=== PATIENT | male | born 1945 | race Caucasian/White ===

== ENCOUNTER → 2017-08-08 | Outpatient (CLI) | payer MEDICARE, OTHER | LOC: M RAD 09:04 | DX: Z12.2 Encounter for screening for malignant neoplasm of respiratory organs (principal); R91.1 Solitary pulmonary nodule | CPT/HCPCS: G0297 ==

== ENCOUNTER → 2017-11-08 | Outpatient (REF) | payer MEDICARE, OTHER ==
[2017-11-08 17:06] LABS: HEMATOCRIT 36.2 % (42.0-52.0); HEMOGLOBIN 12.3 g/dl (13.5-17.5); MEAN CORPUSCULAR HEMOGLOBIN 31.5 pg (27.0-33.0); MEAN CORPUSCULAR VOLUME 92.6 fl (80.0-96.0); PLATELET COUNT, AUTOMATED 301 10^3/uL (150-450); RED BLOOD COUNT 3.91 10^6/uL (4.30-6.10); RED CELL DISTRIBUTION WIDTH 12.9 % (11.5-14.5); WHITE BLOOD COUNT 6.9 10^3/uL (4.0-10.0)
[2017-11-08 17:17] LABS: APPEARANCE, URINE MANUAL TURBID (CLEAR); COLOR, URINE MANUAL RED (YELLOW); PH,URINE MAN OBSCURED UNITS (5.0 - 7.0)
[2017-11-08 17:18] LABS: BILIRUBIN, URINE MANUAL OBSCURED (NEGATIVE); BLOOD URINE MANUAL POSITIVE (NEGATIVE); GLUCOSE, URINE (UA) MANUAL OBSCURED mg/dL (NEGATIVE); KETONE, URINE MANUAL OBSCURED mg/dL (NEGATIVE); LEUKOCYTE ESTERASE, URINE MAN OBSCURED (NEGATIVE); MICROSCOPIC INDICATED? MAN YES (NO); NITRITE, URINE MANUAL OBSCURED (NEGATIVE); PROTEIN, URINE MANUAL OBSCURED mg/dL (NEGATIVE); RBC, URINE TNTC /hpf (0-3); SPECIFIC GRAVITY,URINE MANUAL 1.022 (1.002-1.035); SQUAMOUS EPITHELIAL CELL URINE NONE SEEN /hpf (SMALL AMT); UROBILINOGEN, URINE MANUAL OBSCURED mg/dl (NORMAL); WBC, URINE NONE SEEN /hpf (0-3)
[2017-11-08 17:19] LABS: BACTERIA, URINE NONE SEEN; HYALINE CAST, URINE NONE SEEN /lpf (0-1); MICROSCOPIC EXAM PERFORMED
[2017-11-08 17:21] LABS: ALBUMIN 3.9 GM/DL (3.2-5.2); ALBUMIN/GLOBULIN RATIO 1.05 (1.00-1.93); ALKALINE PHOSPHATASE 49 U/L (45-117); ALT/SGPT 17 U/L (12-78); ANION GAP 7 MEQ/L (8-16); AST/SGOT 14 U/L (7-37); BILIRUBIN,TOTAL 0.4 MG/DL (0.2-1.0); BLOOD UREA NITROGEN 16 MG/DL (7-18); CALCIUM LEVEL 8.7 MG/DL (8.8-10.2); CARBON DIOXIDE LEVEL 26 MEQ/L (21-32); CHLORIDE LEVEL 104 MEQ/L (98-107); CREATININE FOR GFR 0.91 MG/DL (0.70-1.30); GLOMERULAR FILTRATION RATE > 60.0 (>42); GLUCOSE, FASTING 93 MG/DL (70-100); POTASSIUM SERUM 4.4 MEQ/L (3.5-5.1); SODIUM LEVEL 137 MEQ/L (136-145); TOTAL PROTEIN 7.6 GM/DL (6.4-8.2)
== END ==
LOC: M SFHCCLAY 11:07
DX: R31.0 Gross hematuria (principal)
CPT/HCPCS: 80053

== ENCOUNTER → 2017-11-22 | Outpatient (CLI) | payer MEDICARE, OTHER ==
[~2017-11-22] MED LIST: ISOVUE-370 76% 100ML VIAL (Q9967) As Ordered
== END ==
LOC: M RAD 10:49
DX: R31.0 Gross hematuria (principal); N28.1 Cyst of kidney, acquired; K76.89 Other specified diseases of liver; K57.90 Diverticulosis of intestine, part unspecified, without perforation or abscess without bleeding; N40.0 Benign prostatic hyperplasia without lower urinary tract symptoms
CPT/HCPCS: Q9967

== ENCOUNTER → 2018-01-15 | Outpatient (REF) | payer MEDICARE, OTHER ==
[2018-01-15 11:28] LABS: BASO # 0.1 10^3/uL (0.0-0.2); BASO % 2.2 % (0.0-1.0); EOS # 0.3 10^3/uL (0.0-0.50); HEMATOCRIT 38.6 % (42.0-52.0); HEMOGLOBIN 13.5 g/dl (13.5-17.5); IMMATURE GRANULOCYTE % 0.7 % (0-3.0); LYMPH # 1.3 10^3/uL (1.5-4.5); LYMPH % 29.8 % (24.0-44.0); MEAN CORPUSCULAR HEMOGLOBIN 31.7 pg (27.0-33.0); MEAN CORPUSCULAR VOLUME 90.6 fl (80.0-96.0); MONO # 0.5 10^3/uL (0.0-0.8); MONO % 10.1 % (0.0-5.0); NEUTROPHILS # 2.2 10^3/uL (1.8-7.7); NEUTROPHILS % 50.2 % (36.0-66.0); PLATELET COUNT, AUTOMATED 275 10^3/uL (150-450); RED BLOOD COUNT 4.26 10^6/uL (4.30-6.10); WHITE BLOOD COUNT 4.5 10^3/uL (4.0-10.0)
[2018-01-15 11:44] LABS: IRON (FE) 55 UG/DL (65-175)
== END ==
LOC: M SFHCCLAY 08:34
DX: D64.9 Anemia, unspecified (principal)
CPT/HCPCS: 83540

== ENCOUNTER → 2018-02-06 | Outpatient (CLI) | payer MEDICARE, OTHER | LOC: M RAD 08:41 | DX: Z12.2 Encounter for screening for malignant neoplasm of respiratory organs (principal); Z87.891 Personal history of nicotine dependence | CPT/HCPCS: 71250 ==

== ENCOUNTER → 2018-03-05 | Outpatient (CLI) | payer MEDICARE, OTHER | LOC: M PLARAD 13:10 | DX: R91.1 Solitary pulmonary nodule (principal); R91.8 Other nonspecific abnormal finding of lung field | CPT/HCPCS: 78815 ==

== ENCOUNTER → 2018-03-07 | Outpatient (REF) | payer MEDICARE, OTHER ==
[2018-03-07 14:30] LABS: BASO # 0.1 10^3/uL (0.0-0.2); BASO % 1.7 % (0.0-1.0); EOS # 0.3 10^3/uL (0.0-0.50); EOS % 4.7 % (0.0-3.0); HEMATOCRIT 37.4 % (42.0-52.0); HEMOGLOBIN 12.9 g/dl (13.5-17.5); IMMATURE GRANULOCYTE % 0.9 % (0-3.0); LYMPH # 1.5 10^3/uL (1.5-4.5); MEAN CORPUSCULAR HEMOGLOBIN 30.9 pg (27.0-33.0); MEAN CORPUSCULAR HGB CONC 34.5 g/dl (32.0-36.5); MEAN CORPUSCULAR VOLUME 89.7 fl (80.0-96.0); MONO # 0.6 10^3/uL (0.0-0.8); MONO % 8.8 % (0.0-5.0); NEUTROPHILS # 3.9 10^3/uL (1.8-7.7); NEUTROPHILS % 60.9 % (36.0-66.0); PLATELET COUNT, AUTOMATED 280 10^3/uL (150-450); RED BLOOD COUNT 4.17 10^6/uL (4.30-6.10); RED CELL DISTRIBUTION WIDTH 12.6 % (11.5-14.5); WHITE BLOOD COUNT 6.3 10^3/uL (4.0-10.0)
[2018-03-07 14:47] LABS: ANION GAP 4 MEQ/L (8-16); BLOOD UREA NITROGEN 13 MG/DL (7-18); CALCIUM LEVEL 8.3 MG/DL (8.8-10.2); CARBON DIOXIDE LEVEL 27 MEQ/L (21-32); CHLORIDE LEVEL 106 MEQ/L (98-107); CREATININE FOR GFR 0.79 MG/DL (0.70-1.30); GLOMERULAR FILTRATION RATE > 60.0 (>42); GLUCOSE, FASTING 82 MG/DL (70-100); POTASSIUM SERUM 4.5 MEQ/L (3.5-5.1); SODIUM LEVEL 137 MEQ/L (136-145)
[2018-03-07 14:50] LABS: INR 0.94; PROTHROMBIN TIME 12.7 SECONDS (12.1-14.4)
[2018-03-07 14:51] LABS: PARTIAL THROMBOPLASTIN TIME 30.3 SECONDS (25.4-37.6)
== END ==
LOC: M LAB REF 13:11
DX: R91.1 Solitary pulmonary nodule (principal); Z79.01 Long term (current) use of anticoagulants
CPT/HCPCS: 80048

== ENCOUNTER 2018-03-12 05:50 | Day surgery (SDC) | payer MEDICARE, OTHER ==
[2018-03-12] MEDS: THROMBIN SOLN 20,000 UNITS KIT As Ordered (06:37)
[2018-03-12] MEDS: EPINEPHrine 1MG/10ML SYRINGE 1.5IN As Ordered (06:37)
[2018-03-12] MEDS: LIDOCAINE VISCOUS 2% SOLN 15ML UDC As Ordered (06:38)
[2018-03-12] MEDS ORDERED: LR 1,000 ML IV ×2 (06:45→09:15)
[2018-03-12] MEDS ORDERED: LIDOCAINE 2% INJ 100 MG/5 ML SDV (FOR ANES.) As Ordered (07:19)
[2018-03-12] MEDS ORDERED: ROCURONIUM BROMIDE 50 MG/5 ML VIAL As Ordered (07:19)
[2018-03-12] MEDS ORDERED: PROPOFOL 200 MG/20 ML VIAL As Ordered ×2 (07:19→08:46)
[2018-03-12] MEDS ORDERED: fentaNYL 100 MCG/2 ML INJECTION (J3010) As Ordered (07:20)
[2018-03-12] MEDS ORDERED: dexameTHASONE 4 MG/ML 1ML VIAL (J1100) As Ordered (07:45)
[2018-03-12] MEDS: CETACAINE SPRAY 5GM As Ordered (07:47)
[2018-03-12] MEDS ORDERED: GLYCOPYRROLATE INJ 0.2 MG/ML 2 ML VIAL As Ordered ×2 (07:57→08:36)
[2018-03-12] MEDS ORDERED: NEOSTIGMINE 10 MG/10 ML VIAL (J2710) As Ordered ×2 (07:57→08:10)
[2018-03-12] MEDS ORDERED: ONDANSETRON 4MG/2ML VIAL (J2405) As Ordered (07:58)
[2018-03-12] MEDS ORDERED: ePHEDrine SULFATE 25 MG/5 ML(5MG/ML) SYRINGE As Ordered (08:00)
[2018-03-12] MEDS ORDERED: PHENYLephrine HCL 500 MCG/5 ML (100MCG/ML) SYRINGE (J2370) As Ordered ×2 (08:00→08:36)
[2018-03-12] MEDS ORDERED: PERCOCET 5MG/325MG TAB PO (09:15)
[2018-03-12] MEDS ORDERED: ONDANSETRON 4MG/2ML VIAL (J2405) IV (09:15)
[2018-03-12] MEDS ORDERED: fentaNYL 100 MCG/2 ML INJECTION (J3010) IV (09:15)
== END 2018-03-12 09:57 | disposition home or self-care (01) ==
LOC: M SDC 05:50
DX: R91.1 Solitary pulmonary nodule (principal); F17.218 Nicotine dependence, cigarettes, with other nicotine-induced disorders; I10 Essential (primary) hypertension; E03.9 Hypothyroidism, unspecified; K58.9 Irritable bowel syndrome, unspecified; K21.9 Gastro-esophageal reflux disease without esophagitis; F41.9 Anxiety disorder, unspecified; F32.9 Major depressive disorder, single episode, unspecified; Z79.899 Other long term (current) drug therapy
CPT/HCPCS: 31623

== ENCOUNTER → 2018-03-26 | Outpatient (CLI) | payer MEDICARE, OTHER | LOC: M CARPUL 13:10 | DX: J44.9 Chronic obstructive pulmonary disease, unspecified (principal) | CPT/HCPCS: 94060 ==

== ENCOUNTER → 2018-05-07 | Outpatient (CLI) | payer MEDICARE, OTHER ==
[2018-05-07 11:47] LABS: ABG BASE EXCESS -1.9 (-2.0-2.0); ABG DEVICE ROOM AIR; ABG HCO3 22.1 MEQ/L (22.0-26.0); ABG O2 SATURATION 96.2 % (95.0-99.0); ABG PARTIAL PRESSURE CO2 35.1 mmHg (35.0-45.0); ABG STANDARD HCO3 22.9 MEQ/L (22.0-26.0); ABG TOTAL CO2 23.2 MEQ/L (23.0-31.0); ABG pH (ARTERIAL) 7.417 UNITS (7.350-7.450)
[2018-05-07 12:01] LABS: CARBOXYHEMOGLOBIN 1.7 % (0.0-1.5)
[2018-05-07 12:13] LABS: AMORPHOUS SEDIMENT SMALL (NEGATIVE); APPEARANCE, URINE CLEAR (CLEAR); BACTERIA, URINE AUTO NEGATIVE (NEGATIVE); BILIRUBIN, URINE AUTO NEGATIVE (NEGATIVE); BLOOD, URINE BLOOD NEGATIVE (NEGATIVE); COLOR, URINE YELLOW (YELLOW); GLUCOSE, URINE (UA) AUTO NEGATIVE (NEGATIVE); KETONE, URINE AUTO NEGATIVE (NEGATIVE); LEUKOCYTE ESTERASE, URINE AUTO NEGATIVE (NEGATIVE); MUCUS, URINE SMALL (NEGATIVE); NITRITE, URINE AUTO NEGATIVE (NEGATIVE); PROTEIN, URINE AUTO NEGATIVE (NEGATIVE); RBC, URINE AUTO 2 /HPF (0-3); SPECIFIC GRAVITY URINE AUTO 1.019 (1.002-1.035); SQUAMOUS EPITHELIAL CELL UR AU 0 /HPF (0-6); UROBILINOGEN, URINE AUTO 0.2 mg/dL (0.0-2.0); WBC, URINE AUTO 1 /HPF (0-3)
[2018-05-07 12:14] LABS: HEMATOCRIT 34.8 % (42.0-52.0); MEAN CORPUSCULAR HEMOGLOBIN 31.4 pg (27.0-33.0); MEAN CORPUSCULAR HGB CONC 34.5 g/dl (32.0-36.5); MEAN CORPUSCULAR VOLUME 91.1 fl (80.0-96.0); PLATELET COUNT, AUTOMATED 294 10^3/uL (150-450); RED BLOOD COUNT 3.82 10^6/uL (4.30-6.10); RED CELL DISTRIBUTION WIDTH 13.2 % (11.5-14.5); WHITE BLOOD COUNT 5.9 10^3/uL (4.0-10.0)
[2018-05-07 12:32] LABS: INR 1.15; PARTIAL THROMBOPLASTIN TIME 26.7 SECONDS (25.4-37.6); PROTHROMBIN TIME 14.8 SECONDS (12.1-14.4)
[2018-05-07 12:41] LABS: ANION GAP 6 MEQ/L (8-16); BLOOD UREA NITROGEN 16 MG/DL (7-18); CALCIUM LEVEL 8.6 MG/DL (8.8-10.2); CARBON DIOXIDE LEVEL 28 MEQ/L (21-32); CHLORIDE LEVEL 106 MEQ/L (98-107); CREATININE FOR GFR 0.89 MG/DL (0.70-1.30); GLOMERULAR FILTRATION RATE > 60.0 (>42); GLUCOSE, FASTING 94 MG/DL (70-100); POTASSIUM SERUM 4.4 MEQ/L (3.5-5.1); SODIUM LEVEL 140 MEQ/L (136-145)
== END ==
LOC: M ADMPAT 09:56
DX: R91.1 Solitary pulmonary nodule (principal); R91.8 Other nonspecific abnormal finding of lung field
CPT/HCPCS: 71046

== ENCOUNTER 2018-05-21 07:22 | Inpatient (IN) | payer MEDICARE, OTHER ==
[2018-05-21] MEDS: LR 1,000 ML IV ×2 (06:00→16:15)
[2018-05-21] MEDS: MUPIROCIN 2% OINT 22 GM TUBE TOP (06:00)
[~2018-05-21 07:22] MED LIST changes: -ISOVUE-370 76% 100ML VIAL (Q9967) As Ordered; +LIDOCAINE 1% MDV 20ML VIAL SQ
[2018-05-21] MEDS ORDERED: fentaNYL 100 MCG/2 ML INJECTION (J3010) As Ordered ×2 (09:05→15:55)
[2018-05-21] MEDS ORDERED: MIDAZOLAM INJ 2 MG/2 ML VIAL (J2250) As Ordered ×2 (09:05→12:26)
[2018-05-21] MEDS: fentaNYL 100 MCG/2 ML INJECTION (J3010) IV ×6 (09:19→16:20)
[2018-05-21] MEDS: MIDAZOLAM INJ 2 MG/2 ML VIAL (J2250) IV ×2 (09:19→09:20)
[2018-05-21] MEDS ORDERED: WALLBOXKEY XX (10:30)
[2018-05-21] MEDS ORDERED: NALOXONE INJ 0.4 MG/1 ML VIAL (J2310) IV (10:30)
[2018-05-21] MEDS ORDERED: METOCLOPRAMIDE INJ 10MG/2ML VIAL (J2765) IV (10:30)
[2018-05-21] MEDS ORDERED: diphenhydrAMINE INJ 50MG/ML VIAL (J1200) IV (10:30)
[2018-05-21] MEDS ORDERED: ONDANSETRON 4MG/2ML VIAL (J2405) IV ×3 (10:30→16:15)
[2018-05-21] MEDS ORDERED: EPIDURAL/PCA KEYS XX (10:30)
[2018-05-21] MEDS: CETACAINE SPRAY 5GM As Ordered (10:36)
[2018-05-21] MEDS: MUPIROCIN 2% OINT 22 GM TUBE As Ordered (10:49)
[2018-05-21] MEDS ORDERED: BUPIVACAINE HCL 0.25% 30 ML VIAL As Ordered (12:26)
[2018-05-21] MEDS ORDERED: LIDOCAINE 2% INJ 100 MG/5 ML SDV (FOR ANES.) As Ordered (12:26)
[2018-05-21] MEDS ORDERED: PHENYLephrine HCL 500 MCG/5 ML (100MCG/ML) SYRINGE (J2370) As Ordered ×3 (12:26→14:08)
[2018-05-21] MEDS ORDERED: ONDANSETRON 4MG/2ML VIAL (J2405) As Ordered (12:26)
[2018-05-21] MEDS ORDERED: ePHEDrine SULFATE 25 MG/5 ML(5MG/ML) SYRINGE As Ordered (12:26)
[2018-05-21] MEDS ORDERED: dexameTHASONE 4 MG/ML 1ML VIAL (J1100) As Ordered (12:26)
[2018-05-21] MEDS ORDERED: ROCURONIUM BROMIDE 50 MG/5 ML VIAL As Ordered ×3 (12:26→14:11)
[2018-05-21] MEDS ORDERED: fentaNYL 250 MCG/5 ML INJECTION (J3010) As Ordered (12:26)
[2018-05-21] MEDS ORDERED: PROPOFOL 200 MG/20 ML VIAL As Ordered (12:26)
[2018-05-21] MEDS ORDERED: NEOSTIGMINE 10 MG/10 ML VIAL (J2710) As Ordered (15:01)
[2018-05-21] MEDS ORDERED: GLYCOPYRROLATE INJ 0.2 MG/ML 2 ML VIAL As Ordered ×2 (15:01)
[2018-05-21] MEDS: BUPIVACAINE HCL 0.5% 10 ML VIAL As Ordered (15:05)
[2018-05-21] MEDS: BUPIVACAINE LIPOSOME/PF 1.3% 20ML VIAL (13.3MG/ML)(EXPAREL)(C9290 PER1MG) As Ordered (15:05)
[2018-05-21] MEDS ORDERED: NORCO, ANEXSIA 5/325MG TABLET (HYDROcodone/ACETAMINOPHEN) PO (15:30)
[2018-05-21] MEDS ORDERED: PERCOCET 5MG/325MG TAB PO (15:30)
[2018-05-21] MEDS ORDERED: BISACODYL 10 MG SUPP PR (15:30)
[2018-05-21] MEDS: FENTANYL/BUPIVACAINE/NACL BAG 250 ML EPIDURAL (15:45)
[2018-05-21 16:01] LABS: ABG HCO3 23.1 MEQ/L (22.0-26.0); ABG O2 SATURATION 92.6 % (95.0-99.0); ABG PARTIAL PRESSURE CO2 40.8 mmHg (35.0-45.0); ABG PARTIAL PRESSURE O2 64.9 mmHg (75.0-100.0); ABG STANDARD HCO3 22.7 MEQ/L (22.0-26.0); ABG TOTAL CO2 24.4 MEQ/L (23.0-31.0); ABG pH (ARTERIAL) 7.371 UNITS (7.350-7.450)
[2018-05-21 16:04] LABS: BASO # 0.1 10^3/uL (0.0-0.2); BASO % 0.8 % (0.0-1.0); EOS # 0.1 10^3/uL (0.0-0.50); EOS % 0.5 % (0.0-3.0); HEMATOCRIT 33.1 % (42.0-52.0); HEMOGLOBIN 11.3 g/dl (13.5-17.5); IMMATURE GRANULOCYTE % 0.6 % (0-3.0); LYMPH # 0.4 10^3/uL (1.5-4.5); LYMPH % 3.8 % (24.0-44.0); MEAN CORPUSCULAR HEMOGLOBIN 31.4 pg (27.0-33.0); MEAN CORPUSCULAR HGB CONC 34.1 g/dl (32.0-36.5); MEAN CORPUSCULAR VOLUME 91.9 fl (80.0-96.0); MONO # 0.5 10^3/uL (0.0-0.8); MONO % 5.3 % (0.0-5.0); NEUTROPHILS # 8.8 10^3/uL (1.8-7.7); PLATELET COUNT, AUTOMATED 226 10^3/uL (150-450); RED CELL DISTRIBUTION WIDTH 12.5 % (11.5-14.5); WHITE BLOOD COUNT 9.9 10^3/uL (4.0-10.0)
[2018-05-21] MEDS ORDERED: MORPHINE 10 MG/ML 1ML VIAL (J2270) IV (16:15)
[2018-05-21 16:22] LABS: ANION GAP 8 MEQ/L (8-16); BLOOD UREA NITROGEN 18 MG/DL (7-18); CALCIUM LEVEL 7.7 MG/DL (8.8-10.2); CARBON DIOXIDE LEVEL 26 MEQ/L (21-32); CHLORIDE LEVEL 105 MEQ/L (98-107); CREATININE FOR GFR 0.93 MG/DL (0.70-1.30); GLOMERULAR FILTRATION RATE > 60.0 (>42); GLUCOSE, FASTING 132 MG/DL (70-100); POTASSIUM SERUM 3.9 MEQ/L (3.5-5.1); SODIUM LEVEL 139 MEQ/L (136-145)
[2018-05-21] MEDS: KCL 20MEQ IN D5/NS 1000ML 1,000 ML IV (16:24)
[2018-05-21] MEDS: KETOROLAC 30 MG/ML VIAL (J1885) IV (16:31)
[2018-05-21] MEDS: LISINOPRIL 20 MG TAB PO (18:47)
[2018-05-21] MEDS: ceFAZolin SOD 1 GM in D5W MINI-BAG PLUS 50 ML IV (18:51)
[2018-05-21] MEDS: ATORVASTATIN 20 MG TAB PO (18:52)
[2018-05-21] MEDS: PANTOPRAZOLE 40MG TAB (PROTONIX) PO (18:52)
[2018-05-21] MEDS: LEVALBUTEROL 1.25 MG/0.5 ML CONCENTRATE NEB NEB (19:32)
[2018-05-21] MEDS: busPIRone 10 MG TAB PO (21:00)
[2018-05-21] MEDS: DOCUSATE SODIUM 100 MG CAP PO (21:16)
[2018-05-21] MEDS: ACETAMINOPHEN TAB 650MG DOSE (2X325MG) PO (21:20)
[2018-05-22] MEDS: LEVALBUTEROL 1.25 MG/0.5 ML CONCENTRATE NEB NEB ×5 (00:21→19:59)
[2018-05-22] MEDS: KETOROLAC 30 MG/ML VIAL (J1885) IV ×4 (00:33→18:14)
[2018-05-22] MEDS: ceFAZolin SOD 1 GM in D5W MINI-BAG PLUS 50 ML IV ×3 (04:01→18:14)
[2018-05-22 05:07] LABS: BASO % 0.2 % (0.0-1.0); EOS % 0.2 % (0.0-3.0); HEMOGLOBIN 10.1 g/dl (13.5-17.5); IMMATURE GRANULOCYTE % 0.4 % (0-3.0); LYMPH # 0.7 10^3/uL (1.5-4.5); LYMPH % 7.2 % (24.0-44.0); MEAN CORPUSCULAR HEMOGLOBIN 31.4 pg (27.0-33.0); MEAN CORPUSCULAR HGB CONC 33.7 g/dl (32.0-36.5); MEAN CORPUSCULAR VOLUME 93.2 fl (80.0-96.0); MONO % 9.7 % (0.0-5.0); NEUTROPHILS # 8.2 10^3/uL (1.8-7.7); NEUTROPHILS % 82.3 % (36.0-66.0); PLATELET COUNT, AUTOMATED 236 10^3/uL (150-450); RED BLOOD COUNT 3.22 10^6/uL (4.30-6.10); RED CELL DISTRIBUTION WIDTH 12.5 % (11.5-14.5)
[2018-05-22 06:17] LABS: ABG HCO3 24.6 MEQ/L (22.0-26.0); ABG O2 SATURATION 97.7 % (95.0-99.0); ABG PARTIAL PRESSURE CO2 44.6 mmHg (35.0-45.0); ABG PARTIAL PRESSURE O2 100.4 mmHg (75.0-100.0); ABG STANDARD HCO3 23.6 MEQ/L (22.0-26.0); ABG TOTAL CO2 25.9 MEQ/L (23.0-31.0); ABG pH (ARTERIAL) 7.359 UNITS (7.350-7.450)
[2018-05-22 06:22] LABS: ANION GAP 9 MEQ/L (8-16); BLOOD UREA NITROGEN 15 MG/DL (7-18); CALCIUM LEVEL 6.6 MG/DL (8.8-10.2); CARBON DIOXIDE LEVEL 25 MEQ/L (21-32); CHLORIDE LEVEL 101 MEQ/L (98-107); CREATININE FOR GFR 1.02 MG/DL (0.70-1.30); GLOMERULAR FILTRATION RATE > 60.0 (>42); GLUCOSE, FASTING 114 MG/DL (70-100); SODIUM LEVEL 135 MEQ/L (136-145)
[2018-05-22] MEDS: ATORVASTATIN 20 MG TAB PO (08:55)
[2018-05-22] MEDS: SERTRALINE 100 MG TAB PO (08:55)
[2018-05-22] MEDS: ASPIRIN 81 MG ENTERIC TAB PO (08:55)
[2018-05-22] MEDS: PANTOPRAZOLE 40MG TAB (PROTONIX) PO (08:55)
[2018-05-22] MEDS: LISINOPRIL 20 MG TAB PO (08:55)
[2018-05-22] MEDS: METOPROLOL SUCC (TopROL XL) 50MG **XL** TAB PO (08:56)
[2018-05-22] MEDS: DOCUSATE SODIUM 100 MG CAP PO ×2 (08:56→20:41)
[2018-05-22] MEDS: HEPARIN SOD (PORCINE) 5000 UNITS/ML VIAL SC ×2 (08:56→20:41)
[2018-05-22] MEDS: MOM 30ML SUSPENSION UDC PO (08:57)
[2018-05-22] MEDS ORDERED: NICOTINE 21MG/24HR 1 EA TRANSDERMAL TOP (09:00)
[2018-05-22] MEDS: NICOTINE 14 MG/24 HR TRANSDERMAL TD (09:21)
[2018-05-22] MEDS: busPIRone 10 MG TAB PO (09:27)
[2018-05-22] MEDS: ACETAMINOPHEN TAB 650MG DOSE (2X325MG) PO (11:13)
[2018-05-22] MEDS: FENTANYL/BUPIVACAINE/NACL BAG 250 ML EPIDURAL (15:34)
[2018-05-23] MEDS: LEVALBUTEROL 1.25 MG/0.5 ML CONCENTRATE NEB NEB ×4 (00:55→19:59)
[2018-05-23] MEDS: KETOROLAC 30 MG/ML VIAL (J1885) IV ×4 (01:11→17:27)
[2018-05-23] MEDS: ceFAZolin SOD 1 GM in D5W MINI-BAG PLUS 50 ML IV ×2 (01:16→11:03)
[2018-05-23 05:27] LABS: BASO # 0.1 10^3/uL (0.0-0.2); BASO % 0.7 % (0.0-1.0); EOS # 0.1 10^3/uL (0.0-0.50); EOS % 1.1 % (0.0-3.0); HEMATOCRIT 27.7 % (42.0-52.0); HEMOGLOBIN 9.5 g/dl (13.5-17.5); IMMATURE GRANULOCYTE % 0.5 % (0-3.0); LYMPH # 0.9 10^3/uL (1.5-4.5); LYMPH % 12.5 % (24.0-44.0); MEAN CORPUSCULAR HEMOGLOBIN 32.1 pg (27.0-33.0); MEAN CORPUSCULAR HGB CONC 34.3 g/dl (32.0-36.5); MEAN CORPUSCULAR VOLUME 93.6 fl (80.0-96.0); MONO # 0.7 10^3/uL (0.0-0.8); MONO % 9.2 % (0.0-5.0); NEUTROPHILS # 5.7 10^3/uL (1.8-7.7); PLATELET COUNT, AUTOMATED 191 10^3/uL (150-450); RED BLOOD COUNT 2.96 10^6/uL (4.30-6.10); RED CELL DISTRIBUTION WIDTH 12.4 % (11.5-14.5); WHITE BLOOD COUNT 7.5 10^3/uL (4.0-10.0)
[2018-05-23 05:51] LABS: ANION GAP 4 MEQ/L (8-16); BLOOD UREA NITROGEN 11 MG/DL (7-18); CALCIUM LEVEL 7.6 MG/DL (8.8-10.2); CARBON DIOXIDE LEVEL 30 MEQ/L (21-32); CHLORIDE LEVEL 103 MEQ/L (98-107); CREATININE FOR GFR 0.97 MG/DL (0.70-1.30); GLOMERULAR FILTRATION RATE > 60.0 (>42); GLUCOSE, FASTING 118 MG/DL (70-100); POTASSIUM SERUM 3.9 MEQ/L (3.5-5.1); SODIUM LEVEL 137 MEQ/L (136-145)
[2018-05-23] MEDS: HEPARIN SOD (PORCINE) 5000 UNITS/ML VIAL SC ×2 (08:39→21:00)
[2018-05-23] MEDS: PANTOPRAZOLE 40MG TAB (PROTONIX) PO (08:39)
[2018-05-23] MEDS: busPIRone 10 MG TAB PO (08:39)
[2018-05-23] MEDS: NICOTINE 14 MG/24 HR TRANSDERMAL TD (08:39)
[2018-05-23] MEDS: MOM 30ML SUSPENSION UDC PO (08:39)
[2018-05-23] MEDS: LISINOPRIL 20 MG TAB PO (08:39)
[2018-05-23] MEDS: SERTRALINE 100 MG TAB PO (08:40)
[2018-05-23] MEDS: ATORVASTATIN 20 MG TAB PO (08:40)
[2018-05-23] MEDS: DOCUSATE SODIUM 100 MG CAP PO ×2 (08:40→21:00)
[2018-05-23] MEDS: METOPROLOL SUCC (TopROL XL) 50MG **XL** TAB PO (08:40)
[2018-05-23] MEDS: ASPIRIN 81 MG ENTERIC TAB PO (08:41)
[2018-05-23] MEDS ORDERED: FLUBLOK(EGG FREE)(QUAD)INFLUENZA VACC 0.5ML SYRINGE (90682)18YRS&OLDER IM (09:00)
[2018-05-23] MEDS: FUROSEMIDE 40 MG/4 ML VIAL (J1940) IV (14:41)
[2018-05-23] MEDS: FENTANYL/BUPIVACAINE/NACL BAG 250 ML EPIDURAL (23:55)
[2018-05-24] MEDS: KETOROLAC 30 MG/ML VIAL (J1885) IV ×4 (00:03→17:41)
[2018-05-24] MEDS: LEVALBUTEROL 1.25 MG/0.5 ML CONCENTRATE NEB NEB ×4 (00:49→20:49)
[2018-05-24] MEDS ORDERED: FENTANYL/BUPIVACAINE/NACL BAG 250 ML EPIDURAL (01:00)
[2018-05-24 05:18] LABS: BASO # 0.1 10^3/uL (0.0-0.2); BASO % 0.8 % (0.0-1.0); EOS # 0.1 10^3/uL (0.0-0.50); EOS % 1.6 % (0.0-3.0); HEMOGLOBIN 9.1 g/dl (13.5-17.5); IMMATURE GRANULOCYTE % 0.4 % (0-3.0); LYMPH # 0.9 10^3/uL (1.5-4.5); LYMPH % 12.2 % (24.0-44.0); MEAN CORPUSCULAR HEMOGLOBIN 31.4 pg (27.0-33.0); MEAN CORPUSCULAR HGB CONC 33.7 g/dl (32.0-36.5); MEAN CORPUSCULAR VOLUME 93.1 fl (80.0-96.0); MONO # 0.7 10^3/uL (0.0-0.8); MONO % 9.6 % (0.0-5.0); NEUTROPHILS # 5.7 10^3/uL (1.8-7.7); NEUTROPHILS % 75.4 % (36.0-66.0); PLATELET COUNT, AUTOMATED 209 10^3/uL (150-450); RED CELL DISTRIBUTION WIDTH 12.4 % (11.5-14.5); WHITE BLOOD COUNT 7.6 10^3/uL (4.0-10.0)
[2018-05-24 05:27] LABS: ANION GAP 6 MEQ/L (8-16); BLOOD UREA NITROGEN 9 MG/DL (7-18); CALCIUM LEVEL 7.8 MG/DL (8.8-10.2); CARBON DIOXIDE LEVEL 32 MEQ/L (21-32); CHLORIDE LEVEL 101 MEQ/L (98-107); CREATININE FOR GFR 0.85 MG/DL (0.70-1.30); GLOMERULAR FILTRATION RATE > 60.0 (>42); GLUCOSE, FASTING 118 MG/DL (70-100); SODIUM LEVEL 139 MEQ/L (136-145)
[2018-05-24] MEDS: busPIRone 10 MG TAB PO (08:39)
[2018-05-24] MEDS: MOM 30ML SUSPENSION UDC PO (08:39)
[2018-05-24] MEDS: ASPIRIN 81 MG ENTERIC TAB PO (08:40)
[2018-05-24] MEDS: FUROSEMIDE 40 MG/4 ML VIAL (J1940) IV (08:40)
[2018-05-24] MEDS: ATORVASTATIN 20 MG TAB PO (08:40)
[2018-05-24] MEDS: HEPARIN SOD (PORCINE) 5000 UNITS/ML VIAL SC ×2 (08:40→20:27)
[2018-05-24] MEDS: PANTOPRAZOLE 40MG TAB (PROTONIX) PO (08:41)
[2018-05-24] MEDS: SERTRALINE 100 MG TAB PO (08:41)
[2018-05-24] MEDS: DOCUSATE SODIUM 100 MG CAP PO ×2 (08:41→20:27)
[2018-05-24] MEDS: LISINOPRIL 20 MG TAB PO (08:42)
[2018-05-24] MEDS: METOPROLOL SUCC (TopROL XL) 50MG **XL** TAB PO (08:42)
[2018-05-24] MEDS: NICOTINE 14 MG/24 HR TRANSDERMAL TD (08:43)
[2018-05-25] MEDS: FENTANYL/BUPIVACAINE/NACL BAG 250 ML EPIDURAL (00:10)
[2018-05-25] MEDS: KETOROLAC 30 MG/ML VIAL (J1885) IV ×4 (00:17→18:04)
[2018-05-25] MEDS: LEVALBUTEROL 1.25 MG/0.5 ML CONCENTRATE NEB NEB ×5 (02:00→20:45)
[2018-05-25 04:39] LABS: BASO # 0.1 10^3/uL (0.0-0.2); BASO % 0.8 % (0.0-1.0); EOS # 0.2 10^3/uL (0.0-0.50); EOS % 2.5 % (0.0-3.0); HEMOGLOBIN 9.1 g/dl (13.5-17.5); IMMATURE GRANULOCYTE % 0.6 % (0-3.0); LYMPH % 14.3 % (24.0-44.0); MEAN CORPUSCULAR HEMOGLOBIN 31.6 pg (27.0-33.0); MEAN CORPUSCULAR HGB CONC 33.7 g/dl (32.0-36.5); MEAN CORPUSCULAR VOLUME 93.8 fl (80.0-96.0); MONO # 0.7 10^3/uL (0.0-0.8); MONO % 9.4 % (0.0-5.0); NEUTROPHILS # 5.3 10^3/uL (1.8-7.7); NEUTROPHILS % 72.4 % (36.0-66.0); PLATELET COUNT, AUTOMATED 234 10^3/uL (150-450); RED BLOOD COUNT 2.88 10^6/uL (4.30-6.10); RED CELL DISTRIBUTION WIDTH 12.3 % (11.5-14.5); WHITE BLOOD COUNT 7.3 10^3/uL (4.0-10.0)
[2018-05-25 05:02] LABS: ANION GAP 5 MEQ/L (8-16); BLOOD UREA NITROGEN 10 MG/DL (7-18); CALCIUM LEVEL 7.6 MG/DL (8.8-10.2); CARBON DIOXIDE LEVEL 32 MEQ/L (21-32); CHLORIDE LEVEL 96 MEQ/L (98-107); CREATININE FOR GFR 0.86 MG/DL (0.70-1.30); GLOMERULAR FILTRATION RATE > 60.0 (>42); GLUCOSE, FASTING 110 MG/DL (70-100); POTASSIUM SERUM 3.8 MEQ/L (3.5-5.1); SODIUM LEVEL 133 MEQ/L (136-145)
[2018-05-25] MEDS: LEVOTHYROXINE 100MCG TABLET (0.1MG) PO (06:26)
[2018-05-25] MEDS: LEVOTHYROXINE 75MCG TABLET (0.075MG) PO (06:26)
[2018-05-25] MEDS: MOM 30ML SUSPENSION UDC PO (08:44)
[2018-05-25] MEDS: ATORVASTATIN 20 MG TAB PO (08:45)
[2018-05-25] MEDS: NICOTINE 14 MG/24 HR TRANSDERMAL TD (08:45)
[2018-05-25] MEDS: METOPROLOL SUCC (TopROL XL) 50MG **XL** TAB PO (08:46)
[2018-05-25] MEDS: PANTOPRAZOLE 40MG TAB (PROTONIX) PO (08:46)
[2018-05-25] MEDS: DOCUSATE SODIUM 100 MG CAP PO ×2 (08:46→20:33)
[2018-05-25] MEDS: LISINOPRIL 20 MG TAB PO (08:47)
[2018-05-25] MEDS: SERTRALINE 100 MG TAB PO (08:47)
[2018-05-25] MEDS: HEPARIN SOD (PORCINE) 5000 UNITS/ML VIAL SC ×2 (08:47→20:34)
[2018-05-25] MEDS: busPIRone 10 MG TAB PO (08:47)
[2018-05-25] MEDS: ASPIRIN 81 MG ENTERIC TAB PO (08:47)
[2018-05-25] MEDS: PERCOCET 5MG/325MG TAB PO ×2 (15:46→20:32)
[2018-05-26] MEDS: PERCOCET 5MG/325MG TAB PO ×4 (00:58→23:30)
[2018-05-26] MEDS: KETOROLAC 30 MG/ML VIAL (J1885) IV ×3 (00:59→13:28)
[2018-05-26] MEDS: LEVALBUTEROL 1.25 MG/0.5 ML CONCENTRATE NEB NEB ×5 (02:00→19:55)
[2018-05-26 04:46] LABS: BASO # 0.1 10^3/uL (0.0-0.2); EOS # 0.4 10^3/uL (0.0-0.50); EOS % 5.5 % (0.0-3.0); HEMATOCRIT 27.9 % (42.0-52.0); HEMOGLOBIN 9.3 g/dl (13.5-17.5); IMMATURE GRANULOCYTE % 0.4 % (0-3.0); LYMPH # 1.1 10^3/uL (1.5-4.5); LYMPH % 15.2 % (24.0-44.0); MEAN CORPUSCULAR HEMOGLOBIN 30.9 pg (27.0-33.0); MEAN CORPUSCULAR HGB CONC 33.3 g/dl (32.0-36.5); MEAN CORPUSCULAR VOLUME 92.7 fl (80.0-96.0); MONO # 0.8 10^3/uL (0.0-0.8); MONO % 11.1 % (0.0-5.0); NEUTROPHILS # 4.6 10^3/uL (1.8-7.7); NEUTROPHILS % 66.8 % (36.0-66.0); PLATELET COUNT, AUTOMATED 273 10^3/uL (150-450); RED BLOOD COUNT 3.01 10^6/uL (4.30-6.10); RED CELL DISTRIBUTION WIDTH 12.1 % (11.5-14.5); WHITE BLOOD COUNT 6.9 10^3/uL (4.0-10.0)
[2018-05-26 05:14] LABS: ANION GAP 7 MEQ/L (8-16); BLOOD UREA NITROGEN 9 MG/DL (7-18); CALCIUM LEVEL 8.1 MG/DL (8.8-10.2); CARBON DIOXIDE LEVEL 31 MEQ/L (21-32); CHLORIDE LEVEL 98 MEQ/L (98-107); CREATININE FOR GFR 0.84 MG/DL (0.70-1.30); GLOMERULAR FILTRATION RATE > 60.0 (>42); GLUCOSE, FASTING 114 MG/DL (70-100); POTASSIUM SERUM 3.4 MEQ/L (3.5-5.1); SODIUM LEVEL 136 MEQ/L (136-145)
[2018-05-26] MEDS: LEVOTHYROXINE 75MCG TABLET (0.075MG) PO (06:19)
[2018-05-26] MEDS: LEVOTHYROXINE 100MCG TABLET (0.1MG) PO (06:19)
[2018-05-26] MEDS: MOM 30ML SUSPENSION UDC PO (09:00)
[2018-05-26] MEDS: PANTOPRAZOLE 40MG TAB (PROTONIX) PO (09:29)
[2018-05-26] MEDS: HEPARIN SOD (PORCINE) 5000 UNITS/ML VIAL SC ×2 (09:29→20:41)
[2018-05-26] MEDS: NICOTINE 14 MG/24 HR TRANSDERMAL TD (09:29)
[2018-05-26] MEDS: SERTRALINE 100 MG TAB PO (09:29)
[2018-05-26] MEDS: busPIRone 10 MG TAB PO (09:29)
[2018-05-26] MEDS: ASPIRIN 81 MG ENTERIC TAB PO (09:30)
[2018-05-26] MEDS: ATORVASTATIN 20 MG TAB PO (09:30)
[2018-05-26] MEDS: LISINOPRIL 20 MG TAB PO (09:30)
[2018-05-26] MEDS: METOPROLOL SUCC (TopROL XL) 50MG **XL** TAB PO (09:30)
[2018-05-26] MEDS: DOCUSATE SODIUM 100 MG CAP PO ×2 (09:30→20:40)
[2018-05-26] MEDS: POTASSIUM CHLORIDE 10 MEQ SR TABLET PO (11:13)
[2018-05-26] MEDS: FUROSEMIDE 40 MG/4 ML VIAL (J1940) IV (11:14)
[2018-05-27] MEDS: LEVALBUTEROL 1.25 MG/0.5 ML CONCENTRATE NEB NEB ×2 (01:30→07:24)
[2018-05-27] MEDS: PERCOCET 5MG/325MG TAB PO ×3 (04:32→14:06)
[2018-05-27 04:34] LABS: BASO # 0.1 10^3/uL (0.0-0.2); BASO % 1.3 % (0.0-1.0); EOS # 0.4 10^3/uL (0.0-0.50); EOS % 5.8 % (0.0-3.0); HEMATOCRIT 27.1 % (42.0-52.0); HEMOGLOBIN 9.2 g/dl (13.5-17.5); IMMATURE GRANULOCYTE % 0.9 % (0-3.0); LYMPH # 0.9 10^3/uL (1.5-4.5); LYMPH % 13.4 % (24.0-44.0); MEAN CORPUSCULAR HEMOGLOBIN 31.2 pg (27.0-33.0); MEAN CORPUSCULAR HGB CONC 33.9 g/dl (32.0-36.5); MEAN CORPUSCULAR VOLUME 91.9 fl (80.0-96.0); MONO # 0.8 10^3/uL (0.0-0.8); MONO % 11.5 % (0.0-5.0); NEUTROPHILS # 4.6 10^3/uL (1.8-7.7); NEUTROPHILS % 67.1 % (36.0-66.0); PLATELET COUNT, AUTOMATED 313 10^3/uL (150-450); RED BLOOD COUNT 2.95 10^6/uL (4.30-6.10); RED CELL DISTRIBUTION WIDTH 11.9 % (11.5-14.5); WHITE BLOOD COUNT 6.9 10^3/uL (4.0-10.0)
[2018-05-27 04:55] LABS: ANION GAP 9 MEQ/L (8-16); BLOOD UREA NITROGEN 9 MG/DL (7-18); CALCIUM LEVEL 7.6 MG/DL (8.8-10.2); CARBON DIOXIDE LEVEL 32 MEQ/L (21-32); CHLORIDE LEVEL 103 MEQ/L (98-107); CREATININE FOR GFR 0.83 MG/DL (0.70-1.30); GLOMERULAR FILTRATION RATE > 60.0 (>42); GLUCOSE, FASTING 101 MG/DL (70-100); POTASSIUM SERUM 3.9 MEQ/L (3.5-5.1); SODIUM LEVEL 144 MEQ/L (136-145)
[2018-05-27] MEDS: LEVOTHYROXINE 100MCG TABLET (0.1MG) PO (05:40)
[2018-05-27] MEDS: LEVOTHYROXINE 75MCG TABLET (0.075MG) PO (05:40)
[2018-05-27] MEDS: ATORVASTATIN 20 MG TAB PO (08:18)
[2018-05-27] MEDS: SERTRALINE 100 MG TAB PO (08:18)
[2018-05-27] MEDS: NICOTINE 14 MG/24 HR TRANSDERMAL TD (08:19)
[2018-05-27] MEDS: DOCUSATE SODIUM 100 MG CAP PO (08:19)
[2018-05-27] MEDS: MOM 30ML SUSPENSION UDC PO (08:19)
[2018-05-27] MEDS: METOPROLOL SUCC (TopROL XL) 50MG **XL** TAB PO (08:19)
[2018-05-27] MEDS: busPIRone 10 MG TAB PO (08:19)
[2018-05-27] MEDS: PANTOPRAZOLE 40MG TAB (PROTONIX) PO (08:19)
[2018-05-27] MEDS: ASPIRIN 81 MG ENTERIC TAB PO (08:19)
[2018-05-27] MEDS: HEPARIN SOD (PORCINE) 5000 UNITS/ML VIAL SC (08:20)
[2018-05-27] MEDS: LISINOPRIL 20 MG TAB PO (08:20)
== END 2018-05-27 15:36 | disposition home or self-care (01) | DRG 165 ==
LOC: M OR 07:22 → M ICU 17:20
PROC: 0BBC0ZZ Excision of Right Upper Lung Lobe, Open Approach (ICD-10-PCS; principal; 2018-05-21 09:30)
PROC: 07B70ZX Excision of Thorax Lymphatic, Open Approach, Diagnostic (ICD-10-PCS; 2018-05-21 09:30)
DX: C34.11 Malignant neoplasm of upper lobe, right bronchus or lung (principal); I10 Essential (primary) hypertension; E03.9 Hypothyroidism, unspecified; J44.9 Chronic obstructive pulmonary disease, unspecified; Z87.891 Personal history of nicotine dependence; Z79.82 Long term (current) use of aspirin; Z79.899 Other long term (current) drug therapy

== ENCOUNTER → 2018-06-03 | Outpatient (CLI) | payer MEDICARE, OTHER | LOC: M SMT 08:31 | DX: C34.11 Malignant neoplasm of upper lobe, right bronchus or lung (principal) | CPT/HCPCS: 71046 ==

== ENCOUNTER 2018-07-23 09:53 | Inpatient (IN) | payer MEDICARE, OTHER ==
[~2018-07-23] VITALS: Ht 180.3 cm; Wt 78.5 kg
[~2018-07-23 09:53] MED LIST changes: +ASPI81TA85 PO; +BUSP10TA PO; +CEFU50TA PO; +GEMF600T5 PO; +IBUP200T45 PO; +INCR1INH INH; +LEVO175T2 PO; -LIDOCAINE 1% MDV 20ML VIAL SQ; +LIPI20TA PO; +LISI-538 PO; +METO1TAB7 PO; +NICO21DI6 TOP; +PERCOCET PO; +PROAAER10 INH; +SERT-138 PO
[2018-07-23] MEDS ORDERED: LABETALOL HCL 100 MG/20 ML VIAL IV STA ×2 (10:16→12:22)
--- NOTE | 2018-07-23 10:32 | REP ---
Emergency noncontrast head CT: History: Hypertension. Headache. No comparison brain CT. CT findings: Digital preliminary front window cashier radiograph is unremarkable. Bone window settings demonstrate an intact bony calvarium. No fracture or bony destructive lesion is seen. Vascular calcification is noted in the distal carotid arteries bilaterally. The visualized paranasal sinuses show mucosal changes in the ethmoid and frontal and sphenoid sinuses mild in degree. There is diffuse cerebral atrophy. Lenz-white differentiation pattern is intact above below the tentorium. There is no evidence of infarct, hemorrhage, mass, extra-axial fluid collection, or midline shift. Impression: Mucosal changes in the paranasal sinuses consistent with mild sinusitis. Mild diffuse cerebral atrophy and vascular calcification. No acute intracranial abnormality. Electronically Signed by Valeriano Nguyen MD 07/23/2018 10:23 A
--- NOTE | 2018-07-23 10:45 | REP ---
Clinical: Hypertension. Technique: PA and lateral. Comparison: 06/27/2018. Findings: Stable elevation to the right hemidiaphragm. Lung colon are clear. No acute consolidation, effusion, or pneumothorax. No evidence for pulmonary vascular congestion or interstitial edema. No effusion. Mediastinum and cardiac silhouette are stable. Skeletal structures intact. Impression: Chronic stable changes. No acute cardiopulmonary process appreciated. Electronically Signed by Bernard Gill MD 07/23/2018 10:36 A
[2018-07-23 10:53] LABS: BASO # 0.1 10^3/uL (0.0-0.2); BASO % 2.1 % (0.0-1.0); EOS # 0.4 10^3/uL (0.0-0.50); EOS % 6.1 % (0.0-3.0); HEMATOCRIT 36.4 % (42.0-52.0); HEMOGLOBIN 12.6 g/dl (13.5-17.5); LYMPH # 1.3 10^3/uL (1.5-4.5); LYMPH % 19.8 % (24.0-44.0); MEAN CORPUSCULAR HEMOGLOBIN 29.6 pg (27.0-33.0); MEAN CORPUSCULAR HGB CONC 34.6 g/dl (32.0-36.5); MEAN CORPUSCULAR VOLUME 85.6 fl (80.0-96.0); MONO # 0.6 10^3/uL (0.0-0.8); MONO % 9.4 % (0.0-5.0); NEUTROPHILS # 4.1 10^3/uL (1.8-7.7); NEUTROPHILS % 62.3 % (36.0-66.0); PLATELET COUNT, AUTOMATED 278 10^3/uL (150-450); RED BLOOD COUNT 4.25 10^6/uL (4.30-6.10); WHITE BLOOD COUNT 6.6 10^3/uL (4.0-10.0)
[2018-07-23 11:07] LABS: PARTIAL THROMBOPLASTIN TIME 28.4 SECONDS (25.4-37.6); PROTHROMBIN TIME 13.3 SECONDS (12.1-14.4)
[2018-07-23 11:34] LABS: BLOOD UREA NITROGEN 15 MG/DL (7-18); CALCIUM LEVEL 8.3 MG/DL (8.8-10.2); CARBON DIOXIDE LEVEL 31 MEQ/L (21-32); CHLORIDE LEVEL 102 MEQ/L (98-107); CPK CREATINE PHOSPHOKINASE 84 U/L (39-308); CREATININE FOR GFR 0.76 MG/DL (0.70-1.30); GLOMERULAR FILTRATION RATE > 60.0 (>42); GLUCOSE, FASTING 92 MG/DL (70-100); MB/CK RELATIVE INDEX 2.14 (< OR =4); SODIUM LEVEL 139 MEQ/L (136-145); THYROID STIMULATING HORMONE 0.702 uIU/ML (0.358-3.740); TROPONIN I < 0.02 NG/ML (< 0.10)
[2018-07-23] MEDS ORDERED: ATOR40TA75 PO (12:40)
[2018-07-23] MEDS ORDERED: OMEP20CA3 PO (12:40)
[2018-07-23] MEDS ORDERED: ALEV220T26 PO (12:40)
[2018-07-23] MEDS ORDERED: BENA25CA4 PO (12:40)
[2018-07-23] MEDS ORDERED: METOPROLOL SUCC *XL* 25MG TAB (TopROL *XL*) PO ONE (13:15)
[2018-07-23] MEDS ORDERED: ALBUTEROL 90 MCG/ACT 8GM HFA INHALER INH PRN (13:15)
[2018-07-23] MEDS ORDERED: OMEPRAZOLE 20 MG CAP PO PRN (13:15)
[2018-07-23] MEDS ORDERED: diphenhydrAMINE 25 MG CAP PO PRN (13:15)
[2018-07-23] MEDS ORDERED: IPRATROPIUM 0.5MG/ALBUTEROL 2.5MG INH SOL UD 3ML (DUONEB)(J7620) NEB PRN (13:30)
--- NOTE | 2018-07-23 14:03 | HPE ---
DATE OF ADMISSION: 07/23/2018 72-year-old male with a past medical history of right upper lobe lung CA status-post resection in April 2018. History of non-oxygen dependant COPD, hypertension, hyperlipidemia, hypothyroidism who presents to the emergency room due to elevated blood pressure readings with home blood pressure machine. He also has been having this frontal lobe headache for the past week. In the ER he was noted to have blood pressure as high as 251/120 initially and was given 10 mL of Labetalol which did drop it a bit down to 196/110 and then was given another 20 Labetalol IV and now his blood pressure is 168/97. Patient still has a mild frontal lobe headache but this has improved and he does not have any tinnitus or vertigo or visual disturbances. No chest pain or shortness of breath. He has been complaint with his medications and in fact he took his blood pressure medication this morning. He has not changes his diet. He has been compliant with a low sodium diet. He will be admitted for further management. 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 ALLERGIES: No known drug allergies. FAMILY HISTORY: Noncontributory. SOCIAL HISTORY: Patient at this time denies tobacco, alcohol or illicit drugs. MEDICATIONS: Medications he takes at home are as follows: Albuterol 2 puffs inhaled every 4 hours as needed, aspirin 81 mg orally daily, atorvastatin 40 mg orally daily, buspirone 10 mg orally daily, Benadryl 25 mg orally every 4 hours as needed, ibuprofen 400 mg orally every 4 hours as needed, Incruse ellipta 1 puff inhaled daily at 62.5 mcg, Synthroid 175 mg orally daily, lisinopril 20 mg orally daily, metoprolol succinate 50 mg orally daily, Aleve 440 mg orally daily as needed as needed, omeprazole 20 mg orally daily as needed, Sertraline 100 mg orally daily. REVIEW OF SYSTEMS: Negative for all 10 major system except for what was mentioned in the HPI. VITALS: Blood pressure 168/97, heart rate 80 and regular, respiratory rate 17, temperature 98.4, Oxygen saturation 95% on room air. Head is atraumatic normocephalic. NECK: Supple and no JVD. LUNGS: Clear to auscultation. S1, S2 audible. No murmurs appreciated. ABDOMEN: Soft and positive bowel sounds. No pedal edema. SKIN: Intact. NEUROLOGIC EXAMINATION: Patient awake, alert and oriented times three. LABS: WBC 6.6, hemoglobin 12.6, hematocrit 32.4, platelets 276,000, sodium 139, potassium 4.0, chloride 102, CO2 31, anion gap 6, BUN 15, creatinine 0.76, troponin is less than 0.02, TSH 0.702. IMPRESSION: 1. Hypertensive urgency. PLAN: Patient is to be admitted in the observation status in the progressive care unit. I will give him an extra 25 mg of metoprolol succinate for him to have a total of 75 today and we will continue that daily. We will also continue the rest of his preadmission medications and we will give IV hydralazine 10 mg IV every 6 hours as needed for systolic blood pressure greater than 160 until the metoprolol succinate kicks in and we will continue monitoring his care in the PCU.
[2018-07-23 14:53] VITALS: BP 150/90
[2018-07-23 16:00] VITALS: BP 140/58
[2018-07-23] MEDS: hydrALAZINE INJ 20 MG/ML VIAL IV PRN ×2 (16:39→23:51)
[2018-07-23 16:43] VITALS: BP 170/100
[2018-07-23 17:57] VITALS: BP 160/90
[2018-07-23] MEDS: amLODIPine 10 MG TAB PO SCH (18:19)
[2018-07-23 20:04] VITALS: BP 151/97
[2018-07-23] MEDS: ATORVASTATIN 20 MG TAB PO SCH (20:20)
--- NOTE | 2018-07-23 21:20 | ECGEPIP ---
Stationary ECG Study [facility] - ED Test Date: 2018-07-23 Pat Name: MADISON MYERS Department: Room: - Gender: M Delivery Assistant: : [id number] Requested By: CARMEN Chance Order Number: [id number] Reading MD: Juan Daniel Saucedo Measurements Intervals [place] Rate: 85 P: 51 [place]: 190 QRS: -38 QRSD: 92 T: 18 QT: 388 QTc: 464 Interpretive Statements SINUS RHYTHM LEFT AXIS DEVIATION INCOMPLETE RIGHT BUNDLE BRANCH BLOCK NSTTW ABNORMALITIES NO PRIORS FOR COMPARISON Electronically Signed On 07-23-2018 21:19:52 EST by Juan Daniel Saucedo
[2018-07-24] VITALS (9 sets, daily range): BP systolic 138–175; BP diastolic 76–115
[2018-07-24] MEDS ORDERED: ACETAMINOPHEN TAB 650MG DOSE (2X325MG) PO ONE (00:45)
[2018-07-24] MEDS ORDERED: METOCLOPRAMIDE INJ 10MG/2ML VIAL (J2765) IV ONE (02:45)
[2018-07-24] MEDS ORDERED: KETOROLAC 30 MG/ML VIAL (J1885) IV ONE (02:45)
[2018-07-24 05:26] LABS: BLOOD UREA NITROGEN 12 MG/DL (7-18); CALCIUM LEVEL 8.2 MG/DL (8.8-10.2); CARBON DIOXIDE LEVEL 29 MEQ/L (21-32); CHLORIDE LEVEL 100 MEQ/L (98-107); CREATININE FOR GFR 0.77 MG/DL (0.70-1.30); GLOMERULAR FILTRATION RATE > 60.0 (>42); GLUCOSE, FASTING 112 MG/DL (70-100); POTASSIUM SERUM 3.8 MEQ/L (3.5-5.1); SODIUM LEVEL 135 MEQ/L (136-145)
[2018-07-24] MEDS: LEVOTHYROXINE 100MCG TABLET (0.1MG) PO SCH (05:34)
[2018-07-24] MEDS: LEVOTHYROXINE 75MCG TABLET (0.075MG) PO SCH (05:34)
[2018-07-24 07:25] LABS: BASO # 0.1 10^3/uL (0.0-0.2); BASO % 1.3 % (0.0-1.0); EOS # 0.3 10^3/uL (0.0-0.50); EOS % 3.7 % (0.0-3.0); HEMATOCRIT 36.2 % (42.0-52.0); HEMOGLOBIN 12.2 g/dl (13.5-17.5); LYMPH # 1.3 10^3/uL (1.5-4.5); LYMPH % 14.4 % (24.0-44.0); MEAN CORPUSCULAR HEMOGLOBIN 29.5 pg (27.0-33.0); MEAN CORPUSCULAR HGB CONC 33.7 g/dl (32.0-36.5); MEAN CORPUSCULAR VOLUME 87.4 fl (80.0-96.0); MONO # 0.6 10^3/uL (0.0-0.8); MONO % 7.2 % (0.0-5.0); NEUTROPHILS # 6.3 10^3/uL (1.8-7.7); NEUTROPHILS % 72.8 % (36.0-66.0); PLATELET COUNT, AUTOMATED 301 10^3/uL (150-450); RED BLOOD COUNT 4.14 10^6/uL (4.30-6.10); WHITE BLOOD COUNT 8.7 10^3/uL (4.0-10.0)
[2018-07-24] MEDS: hydrALAZINE INJ 20 MG/ML VIAL IV PRN ×2 (07:55→16:56)
[2018-07-24] MEDS ORDERED: LISINOPRIL 20 MG TAB PO SCH (09:00)
[2018-07-24] MEDS ORDERED: METOPROLOL SUCC *XL* 25MG TAB (TopROL *XL*) PO SCH (09:00)
[2018-07-24] MEDS: ASPIRIN 81 MG ENTERIC TAB PO SCH (10:02)
[2018-07-24] MEDS: busPIRone 10 MG TAB PO SCH (10:02)
[2018-07-24] MEDS: SERTRALINE 100 MG TAB PO SCH (10:03)
[2018-07-24] MEDS: amLODIPine 10 MG TAB PO SCH (10:06)
[2018-07-24] MEDS ORDERED: SLF 3 ML SYR IV PRN (12:15)
[2018-07-24] MEDS ORDERED: LISINOPRIL 20 MG TAB PO ONE (13:00)
[2018-07-24] MEDS: METOPROLOL TART 50 MG TAB PO SCH ×2 (13:19→20:42)
[2018-07-24] MEDS: SLF 3 ML SYR IV SCH ×2 (13:19→20:42)
[2018-07-24] MEDS: PANTOPRAZOLE 40MG TAB (PROTONIX) PO SCH (16:57)
--- NOTE | 2018-07-24 19:06 | IPN ---
DATE: 07/24/2018 SUBJECTIVE: The patient is seen and examined in the room today. The patient complained about some abdominal discomfort. The patient stated that he has a history of reflux. The patient also complained about headaches with photosensitivity. The patient feels that it may be related to his uncontrolled blood pressure. According to the patient, the patient has been religiously taking his blood pressure at home, was also taking a pill. The patient is also noted to have mild blister lesion at the head of the penis. OBJECTIVE: VITAL SIGNS: Temperature is 97.8, pulse is 98, respirations 18, blood pressure 160/100, pulse oximetry 94% on room air. GENERAL: Mild distress secondary to persistent headache. Alert, awake, oriented. HEENT: Normocephalic, atraumatic. Extraocular muscles are grossly intact. CARDIOVASCULAR: Positive S1, S2. Regular rate. LUNGS: Clear to auscultation bilaterally. ABDOMEN: Nontender, nondistended. EXTREMITIES: No edema. LABORATORY DATA: WBC 8.7, hemoglobin 12.3, hematocrit 36.2, platelet count is 301. Sodium is 135, potassium 3.8, chloride 100, carbon dioxide 28, BUN 12, creatinine 0.7, GFR greater than 60, fasting glucose 112, calcium 8.2. ASSESSMENT AND PLAN: 1. Hypertensive urgency. At home, the patient is taking very low dose of metoprolol. We increased metoprolol frequency and dosage. Patient is on maximum dose of Norvasc. The patient is on Lisinopril. Also, he has as needed IV hydralazine. Continue to monitor the patient's blood pressure and adjust medications accordingly. 2. Right upper lobe lung cancer. Biopsy was performed and showed poorly differentiated adenocarcinoma. The patient had a wedge resection followed by right upper lobectomy. Surgery was performed on 05/21/2018. 3. Vesicular penile lesion. We will follow with herpes cultures. 4. Non oxygen dependent chronic obstructive pulmonary disease (COPD). No exacerbation at this moment. 5. Gastroesophageal reflux disease (GERD). On Protonix. 6. Hypothyroidism. On Synthroid. 7. History of claustrophobia. 8. Deep vein thrombosis (DVT) prophylaxis. On thromboembolic compression stockings (TEDS) and compression. MTDD
[2018-07-24] MEDS: ATORVASTATIN 20 MG TAB PO SCH (20:42)
[2018-07-25] MEDS: LEVOTHYROXINE 75MCG TABLET (0.075MG) PO SCH (04:49)
[2018-07-25] MEDS: METOPROLOL TART 50 MG TAB PO SCH ×3 (04:49→21:32)
[2018-07-25] MEDS: LEVOTHYROXINE 100MCG TABLET (0.1MG) PO SCH (04:49)
[2018-07-25] MEDS: SLF 3 ML SYR IV SCH ×3 (04:50→21:32)
[2018-07-25 05:07] LABS: HEMATOCRIT 38.4 % (42.0-52.0); HEMOGLOBIN 12.9 g/dl (13.5-17.5); MEAN CORPUSCULAR HEMOGLOBIN 29.3 pg (27.0-33.0); MEAN CORPUSCULAR HGB CONC 33.6 g/dl (32.0-36.5); MEAN CORPUSCULAR VOLUME 87.1 fl (80.0-96.0); PLATELET COUNT, AUTOMATED 323 10^3/uL (150-450); RED BLOOD COUNT 4.41 10^6/uL (4.30-6.10); WHITE BLOOD COUNT 8.4 10^3/uL (4.0-10.0)
[2018-07-25 05:27] LABS: BLOOD UREA NITROGEN 13 MG/DL (7-18); CALCIUM LEVEL 8.3 MG/DL (8.8-10.2); CARBON DIOXIDE LEVEL 27 MEQ/L (21-32); CHLORIDE LEVEL 102 MEQ/L (98-107); CREATININE FOR GFR 0.87 MG/DL (0.70-1.30); GLOMERULAR FILTRATION RATE > 60.0 (>42); GLUCOSE, FASTING 102 MG/DL (70-100); POTASSIUM SERUM 3.8 MEQ/L (3.5-5.1); SODIUM LEVEL 137 MEQ/L (136-145)
[2018-07-25 08:00] VITALS: BP 120/79
[2018-07-25] MEDS: SERTRALINE 100 MG TAB PO SCH (08:06)
[2018-07-25] MEDS: busPIRone 10 MG TAB PO SCH (08:06)
[2018-07-25] MEDS: ASPIRIN 81 MG ENTERIC TAB PO SCH (08:06)
[2018-07-25] MEDS: PANTOPRAZOLE 40MG TAB (PROTONIX) PO SCH (08:06)
[2018-07-25] MEDS: LISINOPRIL 40 MG TAB PO SCH (08:09)
[2018-07-25] MEDS: amLODIPine 10 MG TAB PO SCH (08:10)
[2018-07-25 12:00] VITALS: BP 125/79
[2018-07-25 13:30] VITALS: BP 133/73
[2018-07-25] MEDS: ACETAMINOPHEN TAB 650MG DOSE (2X325MG) PO PRN (13:56)
[2018-07-25 16:00] VITALS: BP 121/78
--- NOTE | 2018-07-25 16:48 | IPNPDOC ---
Text Note Date of Service The patient was seen on 07/25/18. NOTE SUBJECTIVE: The patient is seen and examined in the room today. The patient states his headache is improving but it is not completely resolved. Patient denies fever or chill. OBJECTIVE: VITAL SIGNS: Listed below. GENERAL: Mild distress secondary to persistent headache. Alert, awake, oriented. HEENT: Normocephalic, atraumatic. Extraocular muscles are grossly intact. CARDIOVASCULAR: Positive S1, S2. Regular rate. LUNGS: Clear to auscultation bilaterally. ABDOMEN: Nontender, nondistended. EXTREMITIES: No edema. LABORATORY DATA: Listed below. ASSESSMENT AND PLAN: #. Hypertensive urgency. - Metoprolol frequency and dosage are adjusted. On maximum dosage of norvasc and lisinopril. PRN IV hydralazine discontinued. # Frontal headache - CT Head was negative. Headache is improving with better blood pressure control. #. Right upper lobe lung cancer. - Biopsy was performed and showed poorly differentiated adenocarcinoma. The patient had a wedge resection followed by right upper lobectomy. Surgery was performed on 05/21/2018. #. Vesicular penile lesion. - We will follow with herpes cultures. #. Non oxygen dependent chronic obstructive pulmonary disease (COPD). No exacerbation at this moment. #. Gastroesophageal reflux disease (GERD). On Protonix. #. Hypothyroidism. On Synthroid. #. History of claustrophobia. #. Deep vein thrombosis (DVT) prophylaxis. On thromboembolic compression stockings (TEDS) and compression. VS,Fishbone, I+O VS, Fishbone, I+O Laboratory Tests 07/25/18 04:48 Red Blood Count 4.41, Mean Corpuscular Volume 87.1, Mean Corpuscular Hemoglobin 29.3, Mean Corpuscular Hemoglobin Concent 33.6, Red Cell Distribution Width 12.4, Calcium Level 8.3 L Vital Signs Date Time Temp Pulse Resp B/P (MAP) Pulse Ox O2 Delivery O2 Flow Rate FiO2 07/25/18 13:56 88 133/73 07/25/18 13:30 98.3 18 94 07/24/18 08:00 Room Air I&O- Last 24 Hours up to 6 AM 07/25/18 06:00 Intake Total 2480 ml Output Total 1725 ml Balance 755 ml ARELY DRAKE DO Jul 25, 2018 16:48
[2018-07-25 20:00] VITALS: BP 121/78
[2018-07-25] MEDS: ATORVASTATIN 20 MG TAB PO SCH (21:32)
[2018-07-26 00:07] LABS: HSV IgM TYPES 1&2 1.5 Ratio (0.00-0.90)
[2018-07-26 00:08] VITALS: BP 138/82
[2018-07-26 04:05] VITALS: BP 142/86
[2018-07-26 04:25] LABS: HEMATOCRIT 35.9 % (42.0-52.0); HEMOGLOBIN 12.1 g/dl (13.5-17.5); MEAN CORPUSCULAR HEMOGLOBIN 29.8 pg (27.0-33.0); MEAN CORPUSCULAR HGB CONC 33.7 g/dl (32.0-36.5); MEAN CORPUSCULAR VOLUME 88.4 fl (80.0-96.0); PLATELET COUNT, AUTOMATED 275 10^3/uL (150-450); RED BLOOD COUNT 4.06 10^6/uL (4.30-6.10)
[2018-07-26 04:46] LABS: BLOOD UREA NITROGEN 18 MG/DL (7-18); CALCIUM LEVEL 7.6 MG/DL (8.8-10.2); CARBON DIOXIDE LEVEL 28 MEQ/L (21-32); CHLORIDE LEVEL 104 MEQ/L (98-107); CREATININE FOR GFR 0.89 MG/DL (0.70-1.30); GLOMERULAR FILTRATION RATE > 60.0 (>42); GLUCOSE, FASTING 123 MG/DL (70-100); POTASSIUM SERUM 3.5 MEQ/L (3.5-5.1); SODIUM LEVEL 138 MEQ/L (136-145)
[2018-07-26] MEDS: SLF 3 ML SYR IV SCH (06:00)
[2018-07-26] MEDS: LEVOTHYROXINE 100MCG TABLET (0.1MG) PO SCH (06:38)
[2018-07-26] MEDS: LEVOTHYROXINE 75MCG TABLET (0.075MG) PO SCH (06:38)
[2018-07-26] MEDS: METOPROLOL TART 50 MG TAB PO SCH (06:38)
[2018-07-26] MEDS: ACETAMINOPHEN TAB 650MG DOSE (2X325MG) PO PRN (06:41)
[2018-07-26 08:00] VITALS: BP 144/72
[2018-07-26] MEDS ORDERED: PANT40TA3 PO (08:35)
[2018-07-26] MEDS ORDERED: METO25TA4 PO ×2 (08:35→11:39)
[2018-07-26] MEDS ORDERED: LISI40TA PO ×2 (08:35→11:39)
[2018-07-26] MEDS ORDERED: AMLO10TA5 PO ×2 (08:35→11:39)
[2018-07-26] MEDS ORDERED: ACET500T15 PO ×2 (08:35→11:39)
[2018-07-26 09:07] VITALS: BP 144/72
[2018-07-26] MEDS: amLODIPine 10 MG TAB PO SCH (09:07)
[2018-07-26] MEDS: ASPIRIN 81 MG ENTERIC TAB PO SCH (09:07)
[2018-07-26] MEDS: busPIRone 10 MG TAB PO SCH (09:07)
[2018-07-26] MEDS: PANTOPRAZOLE 40MG TAB (PROTONIX) PO SCH (09:08)
[2018-07-26] MEDS: LISINOPRIL 40 MG TAB PO SCH (09:08)
[2018-07-26] MEDS: SERTRALINE 100 MG TAB PO SCH (09:08)
[2018-07-26] MEDS ORDERED: PROT1TAB2 PO (11:39)
[2018-07-29] MEDS ORDERED: ACYC400T PO ×2 (18:10→18:15)
--- NOTE | 2018-07-29 18:37 | DSES ---
DATE OF ADMISSION: 07/23/2018 DATE OF DISCHARGE: 07/26/2018 CONSULTANTS: None. PRIMARY CARE PROVIDER: Dr. Yvon Martinez DISCHARGE DIAGNOSES: 1. Hypertensive urgency. 2. Frontal headache secondary to sinusitis. 3. Right upper lobe adenocarcinoma lung cancer status post lobectomy. 4. Herpes simplex virus (HSV) infection. 5. Chronic obstructive pulmonary disease (COPD). 6. Gastroesophageal reflux disease. 7. Hypothyroidism. 8. History of claustrophobia. HOSPITALIZATION COURSE: Patient is a 73-year-old gentleman who presented to [facility] on 07/23/2018 with a complaint of significant elevated blood pressure while he was taking home blood pressure measurements. Patient also noted to have right frontal headache. In the emergency room, patient was found to have a blood pressure as high as 250/120. Patient is admitted under hospitalist service for hypertensive urgency. Patient's blood pressure medications were actively adjusted. Later during admission, patient was found to have vesicular penile lesion. Cultures were obtained. Later, with frequent blood pressure medication adjustments, patient's hypertensive urgency resolved. Patient's frontal headache also showed improvement. On 07/26/2018, patient is determined to be stable for discharge with recommendation to followup with primary care provider in 1 week. VITAL SIGNS: On the day of discharge: Temperature 98.7, pulse 77, respiratory rate 18, blood pressure 144/72, pulse oximetry 93% in room air. LABORATORY DATA: WBC 7, hemoglobin 12.1, hematocrit 35.9, platelet count 275, sodium 138, potassium 3.5, chloride 104, carbon dioxide 28, BUN 18, creatinine 0.89, GFR greater than 60, fasting glucose 123, calcium 7.6, magnesium 2, TSH 0.702, troponin I is less than 0.02. MICROBIOLOGY: HSV polymerase chain reaction (PCR) showed positive HSV-2. IMAGING STUDIES: CT of the head without contrast on 07/23/2018 showed mucosal changes in the paranasal sinus consistent with mild sinusitis. Diffuse cerebral atrophy and vascular calcification. No acute intracranial abnormalities. Chest x-ray on 07/23/2018 demonstrated chronic stable changes. No acute cardiopulmonary process appreciated. DISCHARGE MEDICATIONS: - Tylenol 500 mg by mouth by mouth every 6 hours as needed - acyclovir 400 mg by mouth three times a day for 7 days - amlodipine 10 mg by mouth daily - lisinopril 40 mg by mouth daily - metoprolol tartrate 75 mg by mouth twice a day - Protonix 40 mg by mouth daily - ProAir two puff inhalation every 4 hours as needed - aspirin 81 mg by mouth daily - atorvastatin 40 mg by mouth every evening - buspirone 10 mg by mouth daily - Benadryl 25 mg by mouth every 4 hours as needed for allergic reaction - ibuprofen 400 mg by mouth every 4 hours as needed for pain - Incruse Ellipta one puff inhalation daily - Synthroid 175 mcg by mouth daily - sertraline 100 mg by mouth daily DISCHARGE INSTRUCTIONS: Discontinue lines. Discharge home. Activity as tolerated. Low salt diet as tolerated. Due to the inability to access the primary pharmacy in [facility], a few days' supply was sent to local pharmacy and patient will spanish moss picker the rest of the prescription from the [facility] when the pharmacy is available. Patient is instructed to followup with primary care provider in 1-2 weeks. DISCHARGE CONDITION: Fair. DISCHARGE TIME: Greater than 30 minutes.
== END 2018-07-26 11:57 | disposition home or self-care (01) | DRG 305 ==
LOC: M ED 09:53 → M ED INP 13:10 → M PCU 14:45 → OBSVTOIN 15:50
PROVIDERS: ADMIT Internal Medicine; ATTEND Internal Medicine
DX: I16.0 Hypertensive urgency (principal); J44.9 Chronic obstructive pulmonary disease, unspecified; I10 Essential (primary) hypertension; Z85.118 Personal history of other malignant neoplasm of bronchus and lung; E78.5 Hyperlipidemia, unspecified; E03.9 Hypothyroidism, unspecified; Z79.899 Other long term (current) drug therapy; Z79.82 Long term (current) use of aspirin; K21.9 Gastro-esophageal reflux disease without esophagitis; B00.9 Herpesviral infection, unspecified; F40.240 Claustrophobia

== ENCOUNTER → 2018-09-17 | Outpatient (REF) | payer MEDICARE, OTHER ==
[~2018-09-17] MED LIST changes: +ACET500T15 PO; +ACYC400T PO; +ALEV220T26 PO; +AMLO10TA5 PO; +ATOR40TA75 PO; +BENA25CA4 PO; +LISI40TA PO; +METO25TA4 PO; +OMEP20CA3 PO; +PANT40TA3 PO; +PROT1TAB2 PO
[2018-09-17 13:33] LABS: ALBUMIN 3.9 GM/DL (3.2-5.2); ALT/SGPT 30 U/L (12-78); BILIRUBIN,TOTAL 0.5 MG/DL (0.2-1.0); BLOOD UREA NITROGEN 17 MG/DL (7-18); CALCIUM LEVEL 8.5 MG/DL (8.8-10.2); CARBON DIOXIDE LEVEL 30 MEQ/L (21-32); CHLORIDE LEVEL 103 MEQ/L (98-107); CREATININE FOR GFR 0.93 MG/DL (0.70-1.30); GLOMERULAR FILTRATION RATE > 60.0 (>42); GLUCOSE, FASTING 85 MG/DL (70-100); POTASSIUM SERUM 4.5 MEQ/L (3.5-5.1); SODIUM LEVEL 138 MEQ/L (136-145); TOTAL PROTEIN 7.3 GM/DL (6.4-8.2)
== END ==
LOC: M SFHCCLAY 08:11
PROVIDERS: ATTEND Family Medicine
DX: R10.13 Epigastric pain (principal)
CPT/HCPCS: 80053; G0463

== ENCOUNTER → 2018-09-19 | Outpatient (CLI) | payer MEDICARE, OTHER ==
[~2018-09-19] MED LIST changes: +GASTROGRAFIN SOLUTION 30ML (Q9963) As Ordered ONE; +ISOVUE-370 76% 125ML VIAL (Q9967 PER ML) As Ordered ONE
--- NOTE | 2018-09-19 20:47 | REP ---
Clinical: Epigastric pain. Technique: Axial contrast enhanced images from the lung bases to the pubic symphysis with delayed images of the abdomen as well as coronal and sagittal re-formations using oral (per protocol) and 100 ml Isovue 370 intravenous contrast material. Comparison: 11/22/2017. Findings: Lung bases demonstrate chronic fibro atelectatic changes. Elevation of the right hemidiaphragm noted. Hepatic hypodensities compatible with cysts remain stable. No focal hepatic lesion otherwise noted. Spleen, pancreas, gallbladder, bilateral adrenal glands and right kidney are normal. Left kidney includes 2.5 cm hypodensity compatible with cyst and relatively stable. The enteric system is without obstruction or acute inflammatory process. Normal terminal ileum and appendix identified in the right lower quadrant. Scattered sigmoid diverticula noted without acute diverticulitis. Pelvis demonstrates stable appearance of the bladder along with moderately enlarged prostate gland. No ascites. No free air. No adenopathy. Atherosclerotic changes of the aorta and vasculature without aneurysm or dissection. Musculoskeletal structures demonstrate degenerative changes without focal osseous abnormality. Impression: 1. Elevation to the right hemidiaphragm of uncertain etiology. 2. Hepatic and left renal hypodensities remain stable and mandible with cysts. 3. Few colonic diverticula without acute diverticulitis. 4. No acute abdominopelvic pathology appreciated. Electronically Signed by Bernard Gill MD 09/19/2018 08:39 P
== END ==
LOC: M RAD 15:11
PROVIDERS: ATTEND Family Medicine
DX: R10.13 Epigastric pain (principal); K76.89 Other specified diseases of liver; N28.1 Cyst of kidney, acquired
CPT/HCPCS: 74177; Q9963; Q9967

== ENCOUNTER → 2018-10-30 | Outpatient (CLI) | payer MEDICARE, OTHER ==
[~2018-10-30] MED LIST changes: -GASTROGRAFIN SOLUTION 30ML (Q9963) As Ordered ONE; -ISOVUE-370 76% 125ML VIAL (Q9967 PER ML) As Ordered ONE
--- NOTE | 2018-11-06 08:42 | SLEEPHOME ---
DATE OF PROCEDURE: 10/30/2018 ORDERED BY: Dr. Gupta Diagnostic home sleep testing was performed due to concern for the obstructive sleep apnea syndrome in this patient with a history of excessive somnolence and morning headaches. For testing, a nocturnal T3 respiratory monitoring device was used. Continuous record was made of pulse, oxygen saturation, airflow, chest and abdominal strain and body position. 9 hours and 59 minutes of data were reviewed. There were 9 hours and 10 minutes marked as time in bed. During the interval marked time in bed, there were 208 respiratory events identified of 10 seconds in duration or greater for a respiratory event index of 22.70. The events were primarily obstructive. Baseline pulse rate 74 beats per minute, pulse rate ranged 56-103. Baseline saturation 86.7%. Saturations fell to 69%. Testing was performed in both the supine and nonsupine positions. IMPRESSION: Abnormal home sleep testing with repetitive respiratory events and oxygen desaturations to 69% with a respiratory event index of 22.7 is consistent with the obstructive sleep apnea syndrome. RECOMMENDATIONS: The patient should be encouraged to undergo formal sleep evaluation and in laboratory pressure titration.
== END ==
LOC: M SLEEP HO 09:34
PROVIDERS: ATTEND Internal Medicine Pulmonary Disease
DX: R40.0 Somnolence (principal)

== ENCOUNTER → 2018-11-28 | Outpatient (CLI) | payer MEDICARE, OTHER ==
--- NOTE | 2018-12-02 21:48 | SLEEPCENT ---
DATE OF PROCEDURE: 11/28/2018 ORDERED BY: Dr. Gupta Nocturnal polysomnography was performed for the titration of pressure therapy in this patient with obstructive sleep apnea syndrome, apnea-hypopnea index 22.7. For testing a ResMed AirFit F20 full face mask of medium size was used, 5 cm of water pressure was initially applied to the circuit and the lights were extinguished. 8 hours and 3 minutes of data were reviewed. There were 283 minutes of sleep identified. Sleep latency was prolonged at 133.5 minutes. Rapid eye movement (REM) latency was normal at 127 minutes. Sleep architecture improved late in the study. There were only two REM cycles. Overall sleep efficiency was 59.3% due to periods of wake after sleep onset. The patient's electrocardiogram showed a sinus rhythm with an average heart rate of 61 beats per minute. EEG showed reasonably normal waveforms for awake and sleep stages. Persistence of respiratory events prompted an increase in continuous positive airway pressure (CPAP) pressure. Best sleep was seen on a CPAP pressure of +17. Further increases in pressure therapy prompted the emergence of central events. Persistent hypoxemia despite optimal CPAP prompted the addition of supplemental oxygen. Best sleep was seen on CPAP pressure of +17 with supplemental oxygen at 2 liters per minute bled through the system. IMPRESSION: Obstructive sleep apnea syndrome (G47.33). RECOMMENDATIONS: Nightly use of pressure therapy 17 cm of water with 2 liters of oxygen bled through the CPAP circuit.
== END ==
LOC: M SLEEP 19:30
PROVIDERS: ATTEND Internal Medicine Pulmonary Disease
DX: G47.33 Obstructive sleep apnea (adult) (pediatric) (principal)

== ENCOUNTER → 2019-04-08 | Outpatient (CLI) | payer MEDICARE, OTHER ==
[~2019-04-08] MED LIST changes: -OMEP20CA3 PO; +OMEP20CA4 PO
--- NOTE | 2019-04-08 14:42 | REP ---
CT chest without contrast: History: Nicotine dependence. Low-dose lung cancer screening CT study. The patient is status post right upper lobectomy for malignant right lung nodule. Comparison chest x-ray July 23, 2018. Comparison chest CT study February 06, 2018 and August 08, 2017. Findings: The patient has undergone right upper lobectomy in the interval since the February 06, [address] study. There is a suture line in the right apex and the right hemidiaphragm is quite elevated today. There is mild linear fibrosis in the right middle lobe distribution. No pleural effusion is seen. There are post traumatic changes in the right rib cage. There are granulomatous calcifications in the left lower lobe which are unchanged from January 2018 and July 2017 prior study. There is a 5 mm nodule which is not calcified adjacent to a calcified granuloma in the left lower lobe. This is unchanged from August 08, 2017. No new pulmonary nodule is appreciated. Impression: Lung-RADS category 2 benign findings. Status post interval right upper lobectomy. Granulomatous changes. Electronically Signed by Valeriano Nguyen MD 04/08/2019 06:46 P
== END ==
LOC: M RAD 09:01
PROVIDERS: ATTEND Internal Medicine Pulmonary Disease
DX: Z87.891 Personal history of nicotine dependence (principal); Z90.2 Acquired absence of lung [part of]; Z85.118 Personal history of other malignant neoplasm of bronchus and lung

== ENCOUNTER → 2019-08-28 | Outpatient (REF) | payer MEDICARE, OTHER ==
[~2019-08-28] MED LIST changes: +OMEP1CAP73 PO; -OMEP20CA4 PO
== END ==
LOC: M SFHCCLAY 14:18
PROVIDERS: ATTEND Family Medicine
DX: E03.9 Hypothyroidism, unspecified (principal)
CPT/HCPCS: 84443; G0463

== ENCOUNTER → 2019-10-09 | Outpatient (REF) | payer MEDICARE, OTHER | LOC: M SFHCCLAY 08:42 | PROVIDERS: ATTEND Family Medicine | DX: E03.9 Hypothyroidism, unspecified (principal) ==

== ENCOUNTER → 2019-10-20 | Outpatient (CLI) | payer MEDICARE, OTHER ==
--- NOTE | 2019-10-20 13:43 | REP ---
REASON FOR EXAM: Followup. Patient has a history of right upper lobectomy due to carcinoma. All prior chest CTs have been reviewed, the latest of which is dated 04/08/2019. There is evidence to suggest right hilar adenopathy, although without intravenous contrast administration, proper hilar evaluation is difficult. There is possible right paratracheal adenopathy and, again without intravenous contrast, evaluation is difficult. These findings represent a change from the latest prior mediastinal window exam of 02/06/2018, whereas the prior chest CT of 04/08/2019 is a low-dose screening chest CT only. There are no pleural or pericardial effusions. The imaged upper abdomen is essentially unchanged showing incidental hepatic cysts. The imaged osseous structures are within normal limits. Healed right-sided rib fractures have developed since the last standard chest CT of 02/06/2018. The healed fractures do, however, appear similar to the low-dose screening CT images of 04/08/2019. Evaluation of the lung colon again shows postoperative changes from previous right upper lobectomy. The mediastinum and right hilum in lung window imaging has a similar appearance to that seen on the lung window image only exam of 04/08/2019. No new abnormal nodules, masses, or opacities have developed. Incidental note is made of a left lower lobe calcified granuloma, status quo. IMPRESSION: There are possible right hilar and mediastinal changes, as described above, which when compared to lung window images only from the latest prior chest CT which was ordered and performed as a low-dose lung screening exam, these changes appear relatively stable; however, I would suggest, since the patient has a history of right upper lobectomy from lung carcinoma, consideration be made for followup with contrast-enhanced chest CT if clinically relevant. This is, of course, according to the revised Fleischner Society criteria. Other findings as described above. Electronically Signed by Smith Hayward DO 10/20/2019 02:01 P
== END ==
LOC: M RAD 10:27
PROVIDERS: ATTEND Internal Medicine Pulmonary Disease
DX: C34.90 Malignant neoplasm of unspecified part of unspecified bronchus or lung (principal)

== ENCOUNTER → 2020-03-04 | Outpatient (REF) | payer MEDICARE, OTHER ==
[~2020-03-04] MED LIST changes: -AMLO10TA5 PO; +AMLO1TAB25 PO; -ASPI81TA85 PO; +ASPI81TA86 PO; +PANT40TA29 PO; -PANT40TA3 PO
== END ==
LOC: M LAB REF 17:45
PROVIDERS: ATTEND Nurse Practitioner Family
DX: N40.1 Benign prostatic hyperplasia with lower urinary tract symptoms (principal)

== ENCOUNTER → 2020-03-19 | Outpatient (CLI) | payer MEDICARE, OTHER ==
[2020-03-19 11:10] LABS: BLOOD UREA NITROGEN 17 MG/DL (7-18); CREATININE FOR GFR 0.95 MG/DL (0.70-1.30); GLOMERULAR FILTRATION RATE > 60.0 (>42)
== END ==
LOC: M LAB 09:24
PROVIDERS: ATTEND Internal Medicine Pulmonary Disease
DX: C34.11 Malignant neoplasm of upper lobe, right bronchus or lung (principal)

== ENCOUNTER → 2020-03-29 | Outpatient (CLI) | payer MEDICARE, OTHER ==
[~2020-03-29] MED LIST changes: +ISOVUE-370 76% 100ML VIAL As Ordered ONE
--- NOTE | 2020-04-05 14:36 | REP ---
CT CHEST WITH INTRAVENOUS (IV) CONTRAST HISTORY: Malignant neoplasm right upper lobe of the lung. COMPARISON: Chest CT studies from 10/20/2019, 04/08/2019, and 02/06/2018. CT CONTRAST DOSE: 75 mL of intravenous Isovue-[address] FINDINGS: The patient is status post right upper lobectomy. There is expected volume loss in the right hemithorax with elevation of the right hemidiaphragm unchanged. There is no evidence of pleural or pericardial effusion. No hilar or mediastinal mass or adenopathy is seen. There is no CT evidence of pulmonary embolus or thoracic aortic dissection or aneurysm. There are some vascular calcification changes as before and the thoracic aorta is tortuous. There are post thoracotomy changes in the right rib cage. Adrenal glands are normal bilaterally. There is a tiny accessory splenule in the left upper quadrant and there are stable cysts in the left lobe of the liver. No bony destructive lesion is seen. IMPRESSION: Status post right upper lobectomy. Otherwise, no acute disease. MTDD
== END ==
LOC: M RAD 13:46
PROVIDERS: ATTEND Internal Medicine Pulmonary Disease
DX: C34.11 Malignant neoplasm of upper lobe, right bronchus or lung (principal); Z90.2 Acquired absence of lung [part of]
CPT/HCPCS: 71260; Q9967

== ENCOUNTER → 2021-03-04 | Outpatient (REF) | payer MEDICARE, OTHER ==
[~2021-03-04] MED LIST changes: +ACYC1TAB PO; -ACYC400T PO; -ISOVUE-370 76% 100ML VIAL As Ordered ONE; -LISI-538 PO; +LISI20TA33 PO; -LISI40TA PO; +LISI40TA4 PO
== END ==
LOC: M SFHCCLAY 10:32
PROVIDERS: ATTEND Family Medicine
DX: R97.20 Elevated prostate specific antigen [PSA] (principal)
CPT/HCPCS: 84153; G0463

== ENCOUNTER → 2021-04-15 | Outpatient (CLI) | payer MEDICARE, OTHER ==
[~2021-04-15] MED LIST changes: -IBUP200T45 PO; +IBUP200T46 PO
--- NOTE | 2021-04-15 12:56 | REP ---
INDICATION: PERSONAL HX NICOTINE DEPENDENCE. COMPARISON: Multiple the latest 03/29/[address] scan of the chest without contrast TECHNIQUE: Axial noncontrast images from the thoracic inlet to the upper abdomen using low-dose lung screening technique (LDCT). As per the protocol only lung window images were sent to the read station for interpretation. FINDINGS: Changes from previous right upper lobectomy are noted status quo. There is no evidence of a new abnormal nodule, mass, or opacity. Grossly, the mediastinum and pulmonary bimal are unchanged. Grossly, the imaged upper abdomen and imaged osseous structures are unchanged. IMPRESSION: No significant change other than technique. No new abnormalities are noted. Follow-up as per the revised Fleischner society criteria. <Electronically signed by Smith Hayward > 04/15/21 [id number]
== END ==
LOC: M RAD 09:16
PROVIDERS: ATTEND Internal Medicine Pulmonary Disease
DX: Z87.891 Personal history of nicotine dependence (principal)

== ENCOUNTER → 2021-09-09 | Outpatient (REF) | payer MEDICARE, OTHER | LOC: M SFHCCLAY 10:16 | PROVIDERS: ATTEND Family Medicine | DX: R97.20 Elevated prostate specific antigen [PSA] (principal) ==

== ENCOUNTER → 2022-04-16 | Outpatient (CLI) | payer MEDICARE, OTHER ==
[~2022-04-16] MED LIST changes: +ALBU90AE INH; +ASPI81TA26 PO; +DULO1CAP5 PO; +FLUTISP INH; +LEVO2TA PO; +METO1TAB87 PO; +TREL1AER INH
== END ==
LOC: M LABSMTC 09:29
PROVIDERS: ATTEND Anesthesiology
DX: Z01.812 Encounter for preprocedural laboratory examination (principal); Z20.822 Contact with and (suspected) exposure to COVID-19

== ENCOUNTER 2022-04-19 07:13 | Day surgery (SDC) | payer MEDICARE, OTHER ==
[~2022-04-19] VITALS: Ht 180.3 cm; Wt 103.6 kg
[~2022-04-19 07:13] MED LIST changes: +NS 1,000 ML IV ONE
[2022-04-19] MEDS ORDERED: propofoL 200 MG/20 ML VIAL As Ordered ONE (09:17)
[2022-04-19] MEDS ORDERED: LIDOCAINE 2% 100MG/5ML SDV (FOR ANES.) As Ordered ONE (09:17)
[2022-04-19 09:50] VITALS: BP 136/92
== END 2022-04-19 10:02 | disposition home or self-care (01) ==
LOC: M OPP 07:13
PROVIDERS: ATTEND Internal Medicine Gastroenterology
DX: Z12.11 Encounter for screening for malignant neoplasm of colon (principal); D12.5 Benign neoplasm of sigmoid colon; D12.3 Benign neoplasm of transverse colon; K63.5 Polyp of colon; K64.0 First degree hemorrhoids; K57.30 Diverticulosis of large intestine without perforation or abscess without bleeding; R12 Heartburn; Z79.51 Long term (current) use of inhaled steroids; Z79.52 Long term (current) use of systemic steroids; Z79.899 Other long term (current) drug therapy; G47.30 Sleep apnea, unspecified; Z99.89 Dependence on other enabling machines and devices; C34.90 Malignant neoplasm of unspecified part of unspecified bronchus or lung; N40.0 Benign prostatic hyperplasia without lower urinary tract symptoms; Z87.891 Personal history of nicotine dependence

== ENCOUNTER → 2022-05-10 | Outpatient (CLI) | payer MEDICARE, OTHER ==
[~2022-05-10] MED LIST changes: -NS 1,000 ML IV ONE
== END ==
LOC: M RAD 09:04
PROVIDERS: ATTEND Nurse Practitioner Family
DX: Z12.2 Encounter for screening for malignant neoplasm of respiratory organs (principal); Z87.891 Personal history of nicotine dependence

== ENCOUNTER → 2023-03-23 | Outpatient (CLI) | payer MEDICARE, OTHER ==
[~2023-03-23] MED LIST changes: +FLUT50SP17 INH; -FLUTISP INH
== END ==
LOC: M CLY 11:31
PROVIDERS: ATTEND Family Medicine
DX: M16.0 Bilateral primary osteoarthritis of hip (principal); M79.651 Pain in right thigh; M79.652 Pain in left thigh

== ENCOUNTER → 2023-05-03 | Outpatient (REF) | payer MEDICARE, OTHER ==
[2023-05-03 19:24] LABS: THYROID STIMULATING HORMONE 1.395 uIU/ML (0.55-4.78); TOTAL T3 113.4 NG/DL (60.0-181.0)
[2023-05-03 19:25] LABS: FREE T4 1.28 NG/DL (0.89-1.76)
== END ==
LOC: M SFHCCLAY 10:16
PROVIDERS: ATTEND Family Medicine
DX: E03.9 Hypothyroidism, unspecified (principal)

== ENCOUNTER → 2023-06-26 | Outpatient (CLI) | payer MEDICARE, OTHER ==
[~2023-06-26] MED LIST changes: -FLUT50SP17 INH; +FLUTISP INH
== END ==
LOC: M RAD 10:15
PROVIDERS: ATTEND Nurse Practitioner Family
DX: Z12.2 Encounter for screening for malignant neoplasm of respiratory organs (principal); Z87.891 Personal history of nicotine dependence

== ENCOUNTER → 2023-10-16 | Outpatient (CLI) | payer MEDICARE, OTHER | LOC: M PLAIMG 09:45 | PROVIDERS: ATTEND Nurse Practitioner Family | DX: R91.8 Other nonspecific abnormal finding of lung field (principal) ==

== ENCOUNTER → 2023-11-15 | Outpatient (REF) | LOC: M PLAIMG 08:50 | PROVIDERS: ATTEND Internal Medicine | DX: R06.02 Shortness of breath (principal) ==

== ENCOUNTER 2023-12-11 16:40 | Inpatient (IN) | payer MEDICARE, OTHER ==
[~2023-12-11] VITALS: Ht 180.3 cm; Wt 109.3 kg
[~2023-12-11 16:40] MED LIST changes: -ALBU90AE INH; +ALBU90AE2 INH; -FLUTISP INH; +FLUTISP NARES
[2023-12-11 17:30] LABS: BASO # 0.1 10^3/uL (0.0-0.2); BASO % 1.5 % (0.0-1.0); EOS # 0.1 10^3/uL (0.0-0.5); EOS % 1.5 % (0.0-3.0); HEMATOCRIT 38.7 % (42.0-52.0); HEMOGLOBIN 13.5 g/dl (13.5-17.5); LYMPH # 0.5 10^3/uL (1.5-5.0); MEAN CORPUSCULAR HEMOGLOBIN 30.2 pg (27.0-33.0); MEAN CORPUSCULAR HGB CONC 34.9 g/dl (32.0-36.5); MEAN CORPUSCULAR VOLUME 86.6 fl (80.0-96.0); MONO # 0.6 10^3/uL (0.0-0.8); MONO % 8.3 % (2.0-8.0); NEUTROPHILS # 5.4 10^3/uL (1.5-8.5); NEUTROPHILS % 80.2 % (36.0-66.0); PLATELET COUNT, AUTOMATED 229 10^3/uL (150-450); RED BLOOD COUNT 4.47 10^6/uL (4.30-6.10); WHITE BLOOD COUNT 6.7 10^3/uL (4.0-10.0)
[2023-12-11] MEDS: NS 500 ML IV ONE (17:40)
[2023-12-11] MEDS: NS 1,000 ML IV SCH (17:40)
[2023-12-11 17:53] LABS: LIPASE 23 U/L (12-53)
[2023-12-11 17:55] LABS: ALBUMIN 3.6 G/DL (3.2-5.2); ALKALINE PHOSPHATASE 48 U/L (46-116); ALT/SGPT 28 U/L (7.0-40); AST/SGOT 17 U/L (<34); BILIRUBIN,DIRECT 0.2 MG/DL (<0.4); BILIRUBIN,TOTAL 0.8 MG/DL (0.3-1.2); BLOOD UREA NITROGEN 12 MG/DL (9-23); CALCIUM LEVEL 8.5 MG/DL (8.3-10.6); CARBON DIOXIDE LEVEL 27 MMOL/L (20-31); CHLORIDE LEVEL 100 MMOL/L (98-107); CK-MB VALUE MASS 1.9 NG/ML (<3.6); CREATININE FOR GFR 0.97 MG/DL (0.70-1.30); GLOMERULAR FILTRATION RATE > 60.0 (>42); GLUCOSE, FASTING 113 MG/DL (74-106); POTASSIUM SERUM 3.7 MMOL/L (3.5-5.1); SODIUM LEVEL 134 MMOL/L (136-145); TOTAL PROTEIN 6.7 G/DL (5.7-8.2)
[2023-12-11 17:57] LABS: THYROID STIMULATING HORMONE 1.442 uIU/ML (0.55-4.78); THYROXINE (T4) 7.6 UG/DL (4.5-10.9)
[2023-12-11 17:58] LABS: CPK CREATINE PHOSPHOKINASE 176 U/L (46-171); MB/CK RELATIVE INDEX 1.07 (< OR =4)
[2023-12-11] MEDS ORDERED: ISOVUE-370 76% 100ML VIAL As Ordered ONE (18:22)
[2023-12-11 19:35] LABS: CK-MB VALUE MASS 1.6 NG/ML (<3.6); MB/CK RELATIVE INDEX 0.97 (< OR =4)
[2023-12-11] MEDS: IBUPROFEN 600MG TAB PO ONE (19:53)
[2023-12-11 20:34] LABS: PROCALCITONIN 0.12 ng/ml
[2023-12-11] MEDS: cefTRIAXone SOD 1 GM in D5W MINI-BAG PLUS 50 ML IV ONE (20:57)
[2023-12-11] MEDS ORDERED: MAALOX 30 ML SUSP *UDC PO PRN (21:10)
[2023-12-11] MEDS: AZITHROMYCIN INJ 500 MG, VIAL MATE ADAPTER 1 EACH in D5W 250 ML IV ONE (21:40)
[2023-12-11] MEDS ORDERED: SYNT175T2 PO (22:35)
[2023-12-11] MEDS ORDERED: LISI40TA4 PO (22:35)
[2023-12-11] MEDS ORDERED: FLOM0.4C39 PO (22:35)
[2023-12-11] MEDS ORDERED: AMLO1TAB24 PO (22:35)
[2023-12-11] MEDS ORDERED: ALBU8.5H INH (22:35)
[2023-12-11] MEDS ORDERED: ACET-897 PO (22:35)
[2023-12-11] MEDS ORDERED: HOME MED LIST COMPLETE! XX SCH (22:40)
[2023-12-11] MEDS: ACETAMINOPHEN TAB 650MG DOSE (2X325MG) PO PRN (23:59)
[2023-12-12] VITALS (8 sets, daily range): BP systolic 148–182; BP diastolic 70–88; TEMP 96.8–99.5; O2SAT 90–94
[2023-12-12] MEDS: LEVOTHYROXINE 75MCG TABLET (0.075MG) PO SCH (04:19)
[2023-12-12] MEDS: LEVOTHYROXINE 100MCG TABLET (0.1MG) PO SCH (04:19)
[2023-12-12] MEDS: hydrALAZINE 20MG/ML 1ML VIAL IV PRN (04:20)
[2023-12-12] MEDS: ALBUTEROL 90 MCG/ACT 8GM HFA INHALER INH PRN (04:29)
[2023-12-12] MEDS: METOPROLOL TART 50 MG TAB PO ONE (05:57)
[2023-12-12] MEDS: lisinopriL 40MG TAB PO ONE (05:57)
[2023-12-12] MEDS: MOM 30ML SUSPENSION UDC PO PRN (06:01)
[2023-12-12] MEDS: SYMBICORT 80/4.5MCG INHALER 6GM INH SCH (07:34)
[2023-12-12] MEDS: TIOTROPIUM INHALER/CAPSULE (SPIRIVA) INH SCH (07:34)
[2023-12-12 08:06] LABS: BASO # 0.1 10^3/uL (0.0-0.2); BASO % 1.3 % (0.0-1.0); EOS # 0.1 10^3/uL (0.0-0.5); EOS % 0.9 % (0.0-3.0); HEMATOCRIT 37.3 % (42.0-52.0); HEMOGLOBIN 12.9 g/dl (13.5-17.5); LYMPH # 0.5 10^3/uL (1.5-5.0); LYMPH % 8.3 % (24.0-44.0); MEAN CORPUSCULAR HEMOGLOBIN 29.7 pg (27.0-33.0); MEAN CORPUSCULAR HGB CONC 34.6 g/dl (32.0-36.5); MEAN CORPUSCULAR VOLUME 85.9 fl (80.0-96.0); MONO # 0.8 10^3/uL (0.0-0.8); MONO % 12.8 % (2.0-8.0); NEUTROPHILS # 4.9 10^3/uL (1.5-8.5); NEUTROPHILS % 76.4 % (36.0-66.0); PLATELET COUNT, AUTOMATED 216 10^3/uL (150-450); RED BLOOD COUNT 4.34 10^6/uL (4.30-6.10); WHITE BLOOD COUNT 6.4 10^3/uL (4.0-10.0)
[2023-12-12] MEDS: ATORVASTATIN 20 MG TAB PO SCH (08:20)
[2023-12-12] MEDS: busPIRone 10 MG TAB PO SCH (08:20)
[2023-12-12] MEDS: OMEPRAZOLE 20MG CAP PO SCH (08:20)
[2023-12-12] MEDS: ASPIRIN 81MG ENTERIC TABLET PO SCH (08:20)
[2023-12-12] MEDS: DOXYCYCLINE HYCLATE 100MG TABLET PO SCH (08:20)
[2023-12-12] MEDS: DULoxetine 30MG CAPSULE (CYMBALTA) PO SCH (08:20)
[2023-12-12] MEDS: ENOXAPARIN 40MG/0.4ML SYRINGE (J1650 PER 10MG) SC SCH (08:21)
[2023-12-12] MEDS: FLUTICASONE PROP 0.05% NASAL SPRAY 16 GM (FLONASE) NARES SCH (08:21)
[2023-12-12 08:24] LABS: BLOOD UREA NITROGEN 9 MG/DL (9-23); CALCIUM LEVEL 8.3 MG/DL (8.3-10.6); CARBON DIOXIDE LEVEL 28 MMOL/L (20-31); CHLORIDE LEVEL 100 MMOL/L (98-107); CREATININE FOR GFR 0.85 MG/DL (0.70-1.30); GLOMERULAR FILTRATION RATE > 60.0 (>42); GLUCOSE, FASTING 117 MG/DL (74-106); POTASSIUM SERUM 3.5 MMOL/L (3.5-5.1); SODIUM LEVEL 135 MMOL/L (136-145)
[2023-12-12] MEDS ORDERED: METOPROLOL TART 50 MG TAB PO SCH (09:00)
[2023-12-12] MEDS ORDERED: lisinopriL 40MG TAB PO SCH (09:00)
[2023-12-12] MEDS: TAMSULOSIN 0.4 MG CAP PO SCH (11:25)
[2023-12-12] MEDS: AZITHROMYCIN 250MG TABLET PO SCH (11:30)
[2023-12-12] MEDS: predniSONE 20 MG TAB PO SCH (11:31)
[2023-12-12] MEDS: IPRATROPIUM 0.5MG/ALBUTEROL 2.5MG INH SOL UD 3ML (DUONEB) NEB SCH (13:28)
[2023-12-12] MEDS: POTASSIUM CHLORIDE 10MEQ SR TABLET PO ONE (14:19)
[2023-12-12] MEDS: NS 500 ML IV ONE (15:21)
[2023-12-12] MEDS: BENZONATATE 100MG CAPSULE PO SCH (20:52)
[2023-12-12] MEDS: METOPROLOL TART 50 MG TAB PO SCH (20:53)
[2023-12-12] MEDS ORDERED: amLODIPine 5 MG TAB PO SCH (21:00)
[2023-12-12] MEDS ORDERED: cefTRIAXone SOD 1 GM in D5W MINI-BAG PLUS 50 ML IV SCH (21:00)
[2023-12-13] VITALS (7 sets, daily range): BP systolic 144–162; BP diastolic 56–91; TEMP 97–99.1; O2SAT 88–93
[2023-12-13 06:31] LABS: BLOOD UREA NITROGEN 12 MG/DL (9-23); CALCIUM LEVEL 8.4 MG/DL (8.3-10.6); CARBON DIOXIDE LEVEL 28 MMOL/L (20-31); CHLORIDE LEVEL 105 MMOL/L (98-107); CREATININE FOR GFR 0.85 MG/DL (0.70-1.30); GLOMERULAR FILTRATION RATE > 60.0 (>42); GLUCOSE, FASTING 115 MG/DL (74-106); MAGNESIUM LEVEL 1.9 MG/DL (1.8-2.4); SODIUM LEVEL 138 MMOL/L (136-145)
[2023-12-13] MEDS: lisinopriL 40MG TAB PO SCH (09:14)
[2023-12-13] MEDS: LOPERAMIDE 2 MG CAPLET PO PRN (15:01)
[2023-12-14] VITALS: BP 150/88; TEMP 98.1; O2SAT 91
[2023-12-14 03:10] VITALS: BP 151/87; TEMP 99; O2SAT 93
[2023-12-14 07:45] VITALS: BP 162/91; TEMP 98.4; O2SAT 90
[2023-12-14 08:43] VITALS: BP 162/91
[2023-12-14] MEDS ORDERED: BENZ200C70 PO (09:46)
[2023-12-14] MEDS ORDERED: PRED20TA PO (09:46)
[2023-12-14] MEDS ORDERED: AMLO10TA PO (09:46)
[2023-12-14] MEDS ORDERED: ANTI2TAB16 PO (09:46)
[2023-12-14] MEDS ORDERED: IPRA0.00 INH (09:46)
[2023-12-14] MEDS ORDERED: ALBU8.5H INH (11:14)
== END 2023-12-14 12:20 | disposition home health service (06) | DRG 193 ==
LOC: M ED 16:40 → EDBD 16:40 → M ED INP 22:28 → M PCU 23:41 → M MSPAV 12-12 19:58
PROVIDERS: ADMIT Family Medicine; ATTEND Internal Medicine
DX: J12.2 Parainfluenza virus pneumonia (principal); J96.01 Acute respiratory failure with hypoxia; J44.0 Chronic obstructive pulmonary disease with (acute) lower respiratory infection; J44.1 Chronic obstructive pulmonary disease with (acute) exacerbation; I16.9 Hypertensive crisis, unspecified; E03.9 Hypothyroidism, unspecified; K21.9 Gastro-esophageal reflux disease without esophagitis; I10 Essential (primary) hypertension; G47.33 Obstructive sleep apnea (adult) (pediatric); E78.00 Pure hypercholesterolemia, unspecified; G89.29 Other chronic pain; R19.7 Diarrhea, unspecified; E78.5 Hyperlipidemia, unspecified; N40.0 Benign prostatic hyperplasia without lower urinary tract symptoms; Z85.118 Personal history of other malignant neoplasm of bronchus and lung; R10.9 Unspecified abdominal pain; Z79.82 Long term (current) use of aspirin; Z79.899 Other long term (current) drug therapy; F17.200 Nicotine dependence, unspecified, uncomplicated; F32.A Depression, unspecified

== ENCOUNTER → 2023-12-24 | Outpatient (CLI) | payer MEDICARE, OTHER ==
[~2023-12-24] MED LIST changes: +ACET-897 PO; +ALBU8.5H INH; +AMLO10TA PO; +AMLO1TAB24 PO; +ANTI2TAB16 PO; +BENZ200C70 PO; +FLOM0.4C39 PO; +IPRA0.00 INH; +PRED20TA PO; +SYNT175T2 PO
== END ==
LOC: M CLY 09:09
PROVIDERS: ATTEND Nurse Practitioner Family
DX: J18.9 Pneumonia, unspecified organism (principal)

== ENCOUNTER → 2024-01-10 | Outpatient (REF) | payer MEDICARE, OTHER | LOC: M SFHCDERM 13:15 | PROVIDERS: ATTEND Nurse Practitioner Family | DX: C44.519 Basal cell carcinoma of skin of other part of trunk (principal) ==

== ENCOUNTER → 2024-02-15 | Outpatient (REF) | payer MEDICARE, OTHER | LOC: M SFHCDERM 17:34 | PROVIDERS: ATTEND Physician Assistant | DX: L90.5 Scar conditions and fibrosis of skin (principal) ==

== ENCOUNTER → 2024-07-18 | Outpatient (REF) | payer MEDICARE, OTHER ==
[2024-07-18 18:50] LABS: FREE T4 1.44 NG/DL (0.89-1.76)
[2024-07-18 18:53] LABS: TOTAL T3 89.2 NG/DL (60.0-181.0)
[2024-07-18 18:56] LABS: C REACTIVE PROTEIN QUANTITATIV < 0.50 MG/DL (<1.0)
[2024-07-22 07:28] LABS: ANA SCREEN, IFA NEGATIVE (NEGATIVE)
== END ==
LOC: M SFHCCLAY 11:01
PROVIDERS: ATTEND Family Medicine
DX: R61 Generalized hyperhidrosis (principal); E03.9 Hypothyroidism, unspecified; R97.20 Elevated prostate specific antigen [PSA]

== ENCOUNTER → 2024-08-07 | Outpatient (REF) | payer MEDICARE, OTHER | LOC: M SFHCCLAY 11:49 | PROVIDERS: ATTEND Physician Assistant | DX: I10 Essential (primary) hypertension (principal) ==

== ENCOUNTER → 2024-08-08 | Outpatient (CLI) | payer MEDICARE, OTHER ==
[2024-08-08 11:30] LABS: BASO # 0.2 10^3/uL (0.0-0.2); BASO % 2.6 % (0.0-1.0); EOS # 0.3 10^3/uL (0.0-0.5); EOS % 4.3 % (0.0-3.0); HEMATOCRIT 38.2 % (42.0-52.0); LYMPH # 1.4 10^3/uL (1.5-5.0); LYMPH % 23.8 % (24.0-44.0); MEAN CORPUSCULAR HEMOGLOBIN 30.2 pg (27.0-33.0); MEAN CORPUSCULAR VOLUME 88.8 fl (80.0-96.0); MONO # 0.5 10^3/uL (0.0-0.8); NEUTROPHILS # 3.5 10^3/uL (1.5-8.5); NEUTROPHILS % 59.6 % (36.0-66.0); PLATELET COUNT, AUTOMATED 297 10^3/uL (150-450); WHITE BLOOD COUNT 5.9 10^3/uL (4.0-10.0)
[2024-08-08 12:02] LABS: ALBUMIN 3.7 G/DL (3.2-5.2); ALKALINE PHOSPHATASE 44 U/L (40-129); ALT/SGPT 26 U/L (7.0-40); AST/SGOT 15 U/L (<34); BILIRUBIN,TOTAL 0.6 MG/DL (0.3-1.2); BLOOD UREA NITROGEN 15 MG/DL (9-23); CALCIUM LEVEL 8.8 MG/DL (8.3-10.6); CARBON DIOXIDE LEVEL 32 MMOL/L (20-31); CHLORIDE LEVEL 103 MMOL/L (98-107); CREATININE FOR GFR 0.98 MG/DL (0.70-1.30); GLOMERULAR FILTRATION RATE > 60.0 (>42); GLUCOSE, FASTING 105 MG/DL (74-106); POTASSIUM SERUM 4.2 MMOL/L (3.5-5.1); SODIUM LEVEL 139 MMOL/L (136-145); TOTAL PROTEIN 6.9 G/DL (5.7-8.2)
[2024-08-08 12:04] LABS: THYROID STIMULATING HORMONE 2.042 uIU/ML (0.55-4.78)
== END ==
LOC: M LAB 10:33
PROVIDERS: ATTEND Physician Assistant
DX: I10 Essential (primary) hypertension (principal)